=== PATIENT | female | born 1965 | race Hispanic/Latino ===

== ENCOUNTER 2018-09-30 07:19 | Emergency (ER) | payer OTHER ==
[2018-09-30 07:32] VITALS: BMI 31.3
[2018-09-30 07:40] VITALS: RESP 18; TEMP 98.5
--- NOTE | 2018-09-30 07:47 | ED PDOC ---
Arrival/HPI - General Chief Complaint: Abdominal Pain Historian: Patient - History of Present Illness Narrative History of Present Illness (Text): 09/30/18 08:13 Yesy Villavicencio is a 53 year old female, with a past medical history of hyperlipidemia, who presents to the emergency department complaining of epigastric tightness since two days ago. Patient notes pain began as intermittent and is currently constant. Patient informs pain does not radiate. P atient also notes nausea. Patient states pain is worsened consuming food. Patient informs taking Motrin 800mg with no improvement, prompting Emergency department visit. Patient also notes hardened muscle in the right upper quadrant yesterday whose pain improved with self-massage. Patient informs lifting heavy objects. Patient has no history of endoscopy, colonoscopy, or gallstones. Patient does not take any medications. Patient denies radiating pain, urinary or bowel changes, fevers, chills, vomiting, or any other complaints. Time/Duration: < week (2 days ago) Symptom Course: Worsening (was intermittent is now constant) Quality: Tightness Activities at Onset: Light Context: Home Past Medical History - Provider Review Nursing Documentation Reviewed: Yes - Reproductive Menopause: Yes - Cardiac Hx Cardiac Disorders: Yes - Pulmonary Hx Respiratory Disorders: No - Neurological Hx Neurological Disorder: No - HEENT Hx HEENT Disorder: No - Renal Hx Renal Disorder: No - Endocrine/Metabolic Hx Endocrine Disorders: No - Hematological/Oncological Hx Blood Disorders: No - Integumentary Hx Dermatological Disorder: No - Musculoskeletal/Rheumatological Hx Musculoskeletal Disorders: No - Psychiatric Hx Substance Use: No Family/Social History - Physician Review Nursing Documentation Reviewed: Yes Family/Social History: No Known Family HX Smoking Status: Heavy Smoker > 10 Cigarettes Daily Hx Alcohol Use: No Hx Substance Use: No Allergies/Home Meds Allergies/Adverse Reactions: Allergies No Known Allergies Allergy (Verified 09/30/18 07:32) Home Medications: Home Meds Medication Instructions Recorded Confirmed [place]-3 Fatty Acids/Fish Oil [Fish 1 each PO DAILY 09/30/18 09/30/18 Oil 1,000 mg Softgel] Review of Systems - Physician Review All systems were reviewed & negative as marked: Yes - Review of Systems Constitutional: absent: Fevers, Night Sweats Gastrointestinal: Abdominal Pain (epigastric tightness), Nausea. absent: Vomiting, Other (no bowel changes) Genitourinary Female: absent: Frequency, Urine Output Changes Musculoskeletal: Myalgias (right upper quadrant muscle "hardening") Physical Exam Vital Signs Reviewed: Yes Vital Signs Temp Pulse Resp BP Pulse Ox 09/30/18 07:33 98.5 F 92 H 18 143/101 H 98 Temperature: Afebrile Blood Pressure: Hypertensive Pulse: Regular Respiratory Rate: Normal Appearance: Positive for: Well-Appearing, Non-Toxic, Comfortable Pain Distress: None Mental Status: Positive for: Alert and Oriented X 3 - Systems Exam Head: Present: Atraumatic, Normocephalic Pupils: Present: PERRL Extroacular Muscles: Present: EOMI Conjunctiva: Present: Normal Mouth: Present: Moist Mucous Membranes Neck: Present: Normal Range of Motion Respiratory/Chest: Present: Clear to Auscultation, Good Air Exchange. No: Respiratory Distress, Accessory Muscle Use Cardiovascular: Present: Regular Rate and Rhythm, Normal S1, S2. No: Murmurs Abdomen: Present: Tenderness (epigastric tenderness, RUQ tenderness), Other (Positive Pratt's sign). No: Distention, Peritoneal Signs, Rebound, Guarding Back: Present: Normal Inspection Upper Extremity: Present: Normal Inspection. No: Cyanosis, Edema Lower Extremity: Present: Normal Inspection. No: Edema Skin: Present: Warm, Dry, Normal Color. No: Rashes Psychiatric: Present: Alert, Oriented x 3, Normal Insight, Normal Concentration Medical Decision Making ED Course and Treatment: 09/30/18 08:28 Impression: Patient is a 53 year old female who presents to the emergency room complaining of epigastric tenderness since 2 days ago. Patient also informs of hardened muscle in the RUQ since yesterday. Differential Diagnosis included but are not limited to: Plan: -- EKG -- Labs -- IV Fluids -- Urine Culture -- Toradol -- US Abdomen -- Reassess and disposition Prior Visits: Notes and results from previous visits were reviewed. Progress Notes: - EKG Interpretation EKG Interpretation (Text): 09/30/18 07:44 EKG: Ordered, reviewed, and independently interpreted the EKG. Rate : 88 BPM Rhythm : NSR Interpretation : Normal axis and intervals Comparison : No previous EKG for comparison. Interpreted by ED Physician: Yes Type: 12 lead EKG - Scribe Statement The provider has reviewed the documentation as recorded by the Scribe Boone Calderon All medical record entries made by the Moi were at my direction and personally dictated by me. I have reviewed the chart and agree that the record accurately reflects my personal performance of the history, physical exam, medical decision making, and the department course for this patient. I have also personally directed, reviewed, and agree with the discharge instructions and disposition. Disposition/Present on Arrival - Present on Arrival Any Indicators Present on Arrival: No History of DVT/PE: No History of Uncontrolled Diabetes: No Urinary Catheter: No History of Decub. Ulcer: No History Surgical Site Infection Following: None - Disposition Have Diagnosis and Disposition been Completed?: Yes Diagnosis: Gallstone Disposition: HOME/ ROUTINE Disposition Time: 12:15 Condition: GOOD Discharge Instructions (ExitCare): Gallstones (DC) Additional Instructions: YESY VILLAVICENCIO, thank you for letting us take care of you today. Your provider was Boone Middleton DO and you were treated for abdominal pain. The emergency medical care you received today was directed at your acute symptoms. If you were prescribed any medication, please fill it and take as directed. It may take several days for your symptoms to resolve. Return to the Emergency Department if your symptoms worsen, do not improve, or if you have any other problems. Please contact your doctor or call one of the physicians/clinics you have been referred to that are listed on the Patient Visit Information form that is included in your discharge packet. Bring any paperwork you were given at discharge with you along with any medications you are taking to your follow up visit. Our treatment cannot replace ongoing medical care by a primary care provider outside of the emergency department. Thank you for allowing the [facility] team to be part of your care today. Follow up with your primary care doctor in 3-5 days for re-evaluation and further management. Prescriptions: Ibuprofen [Motrin] 600 mg PO Q6 PRN #20 tab PRN Reason: Pain, Moderate (4-7) Referrals: [facility] Zoya Spaulding, [Non-Staff] - Follow up with primary Forms: [employer] ([place])
[2018-09-30] MEDS ORDERED: Sodium Chloride 0.9% 1,000 ML IV STA (07:54)
[2018-09-30] MEDS ORDERED: Sodium Chloride 0.9% 1,000 ML IV SCH (08:15)
[2018-09-30 09:09] LABS: URINE BILIRUBIN NEGATIVE (NEGATIVE); URINE BLOOD NEGATIVE (NEGATIVE); URINE GLUCOSE (UA) NEGATIVE (NEGATIVE); URINE LEUKOCYTE ESTERASE NEGATIVE Leu/uL (NEGATIVE); URINE PROTEIN NEGATIVE mg/dL (<30 mg/dL); URINE UROBILINOGEN 0.2 E.U./dL (<1 E.U./dL)
[2018-09-30 09:12] LABS: BASO # 0.06 K/mm3 (0.0-2.0); BASO % 0.6 % (0.0-3.0); EOS # 0.3 (0.0-0.7); EOS % 2.5 % (1.5-5.0); HEMOGLOBIN 13.5 g/dL (12.0-16.0); LYMPH # 2.4 (1.2-3.4); LYMPH % 22.3 % (22.0-35.0); MEAN CELL VOLUME 86.2 fl (80.0-105.0); MEAN CORPUSCULAR HEMOGLOBIN 28.6 pg (25.0-35.0); MEAN CORPUSCULAR HGB CONC 33.2 g/dl (31.0-37.0); MEAN PLATELET VOLUME 9.7 fl (7.0-11.0); MONO # 0.9 (0.1-0.6); MONO % 8.7 % (1.0-6.0); RBC 4.72 10^6/uL (3.5-6.1); RED CELL DISTRIBUTION WIDTH 12.8 % (11.5-14.5); WHITE BLOOD COUNT 10.8 10^3/uL (4.5-11.0)
[2018-09-30 09:22] LABS: ALB/GLOB RATIO 1.3 (1.1-1.8); ALBUMIN 4.1 g/dL (3.0-4.8); ALT/SGPT 15 U/L (7-56); AST/SGOT 18 U/L (14-36); BLOOD UREA NITROGEN 13 mg/dL (7-21); CALCIUM 9.5 mg/dL (8.4-10.5); GFR NON-AFRICAN AMERICAN > 60; LIPASE 43 U/L (23-300)
[2018-09-30 09:27] LABS: URINE APPEARANCE CLEAR (CLEAR); URINE COLOR YELLOW (YELLOW)
--- NOTE | 2018-09-30 09:27 | CARD ---
APPROVED REPORT Date of service: 09/30/2018 EKG Measurement Heart [id number] <Conclusion> Normal sinus rhythm Possible Left atrial enlargement Possible Inferior infarct, age undetermined Abnormal ECG
[2018-09-30 09:29] LABS: TROPONIN I < 0.01 ng/mL
--- NOTE | 2018-09-30 12:12 | US ---
Date of service: 09/30/2018 HISTORY: RUQ tenderness COMPARISON: None. TECHNIQUE: Sonographic evaluation of the abdomen. FINDINGS: LIVER: Measures 13.8 cm. Patent portal vein. Portal venous flow: Hepatopetal. Unremarkable echogenicity of the liver parenchyma. No mass. No intrahepatic bile duct dilatation. GALLBLADDER: Cholelithiasis. Negative study for gallbladder wall thickening, pericholecystic fluid, sonographic Pratt's sign. COMMON BILE DUCT: Measures 6.5 mm. No stones. No dilatation. PANCREAS: Unremarkable as visualized. No mass. No ductal dilatation. RIGHT KIDNEY: Measures 4.7 x 10.9cm. Normal echogenicity. No calculus, mass, or hydronephrosis. LEFT KIDNEY: Measures 5.4 x 10.2cm. Normal echogenicity. No calculus, mass, or hydronephrosis. SPLEEN: Normal in size and contour. No mass. AORTA: No aneurysmal dilatation. IVC: Unremarkable. OTHER FINDINGS: None. IMPRESSION: Solitary gallstone in the neck of the gallbladder less than 6 mm. No sonographic evidence of acute cholecystitis.
[2018-09-30 12:22] VITALS: BP 106/69; PULSE 77
[2018-09-30 13:13] VITALS: O2SAT 99
== END 2018-09-30 13:12 | disposition home or self-care (01) ==
LOC: ED 07:19
DX: K80.20 Calculus of gallbladder without cholecystitis without obstruction (principal); F17.210 Nicotine dependence, cigarettes, uncomplicated; E78.5 Hyperlipidemia, unspecified
CPT/HCPCS: 76700; 80053; 81003; 82550; 83615; 83690; 83735; 84484; 85025; 87086; 93005; 96361; 96374; 99283; J1885; J7030

== ENCOUNTER 2018-10-08 18:14 | Inpatient (IN) | payer OTHER ==
[2018-10-08 18:40] VITALS: BMI 30.2
[2018-10-08 19:43] LABS: BASO # 0.04 K/mm3 (0.0-2.0); BASO % 0.4 % (0.0-3.0); EOS # 0.2 (0.0-0.7); EOS % 1.8 % (1.5-5.0); HEMOGLOBIN 13.8 g/dL (12.0-16.0); LYMPH # 1.4 (1.2-3.4); LYMPH % 13.4 % (22.0-35.0); MEAN CELL VOLUME 83.8 fl (80.0-105.0); MEAN CORPUSCULAR HEMOGLOBIN 29.1 pg (25.0-35.0); MEAN CORPUSCULAR HGB CONC 34.8 g/dl (31.0-37.0); MONO # 0.9 (0.1-0.6); MONO % 8.7 % (1.0-6.0); RBC 4.74 10^6/uL (3.5-6.1); WHITE BLOOD COUNT 10.2 10^3/uL (4.5-11.0)
[2018-10-08 19:52] LABS: INR 1.14; PROTHROMBIN TIME 12.7 SECONDS (9.4-12.5)
[2018-10-08 19:57] LABS: ALB/GLOB RATIO 1.1 (1.1-1.8); ALBUMIN 4.1 g/dL (3.0-4.8); ALT/SGPT 623 U/L (7-56); AST/SGOT 803 U/L (14-36); BLOOD UREA NITROGEN 13 mg/dL (7-21); GFR NON-AFRICAN AMERICAN > 60; LIPASE 56 U/L (23-300)
--- NOTE | 2018-10-08 20:31 | ED PDOC ---
Arrival/HPI - General Chief Complaint: Abdominal Pain Time Seen by Provider: 10/08/18 19:04 Historian: Patient - History of Present Illness Narrative History of Present Illness (Text): 10/08/18 20:25 53 year old female, whose past medical history includes Hypercholesterolemia and gallstones, presents to the emergency department with epigastric and RUQ pain, for 2 days. Patient was seen here last week for similar symptoms and diagnosed with a gallstone. Patient was advised to follow up with general surgery and was discharged home. Patient informs having a cholecystectomy scheduled for 10/16/[address] Dominguez. Patient states her pain came back and became unbearable yesterday. Patient informs taking 600mg motrin multiple times daily without relief. Patient denies any fever, chills, nausea, vomiting, diarrhea, back p ain, chest pain, shortness of breath, dizziness, or any other complaints. Time/Duration: 1 week, < week (2 days symptoms worsened) Symptom Onset: Gradual Symptom Course: Unchanged Activities at Onset: Light Context: Home Past Medical History - Provider Review Nursing Documentation Reviewed: Yes - Infectious Disease Hx of Infectious Diseases: None - Cardiac Hx Cardiac Disorders: Yes - Pulmonary Hx Respiratory Disorders: No - Neurological Hx Neurological Disorder: No - HEENT Hx HEENT Disorder: No - Renal Hx Renal Disorder: No - Endocrine/Metabolic Hx Endocrine Disorders: No - Hematological/Oncological Hx Blood Disorders: No - Integumentary Hx Dermatological Disorder: No - Musculoskeletal/Rheumatological Hx Musculoskeletal Disorders: No - Gastrointestinal Hx Gall Bladder Disease: Yes (gallstones) - Psychiatric Hx Substance Use: No - Anesthesia Hx Anesthesia: Yes Hx Anesthesia Reactions: No Hx Malignant Hyperthermia: No Family/Social History - Physician Review Nursing Documentation Reviewed: Yes Family/Social History: No Known Family HX Smoking Status: Heavy Smoker > 10 Cigarettes Daily Hx Alcohol Use: No Hx Substance Use: No Allergies/Home Meds Allergies/Adverse Reactions: Allergies No Known Allergies Allergy (Verified 09/30/18 07:32) Home Medications: Home Meds Medication Instructions Recorded Confirmed [place]-3 Fatty Acids/Fish Oil [Fish 1 each PO DAILY 09/30/18 09/30/18 Oil 1,000 mg Softgel] Review of Systems - Physician Review All systems were reviewed & negative as marked: Yes - Review of Systems Constitutional: Normal. absent: Fatigue, Fevers, Night Sweats Eyes: Normal. absent: Vision Changes, Photophobia ENT: Normal. absent: Sore Throat, Sinus Congestion Respiratory: Normal. absent: SOB, Cough Cardiovascular: Normal. absent: Chest Pain, Palpitations Gastrointestinal: Abdominal Pain. absent: Stool Changes, Diarrhea, Nausea, V omiting, Appetite Changes Genitourinary Female: Normal. absent: Dysuria, Frequency Musculoskeletal: Normal. absent: Back Pain, Neck Pain Skin: Normal. absent: Rash Neurological: Normal. absent: Headache, Dizziness Physical Exam Vital Signs Reviewed: Yes Vital Signs Temp Pulse Resp BP Pulse Ox 10/08/18 18:40 98.5 F 105 H 18 162/88 H 95 Temperature: Afebrile Blood Pressure: Hypertensive Pulse: Tachycardic Respiratory Rate: Normal Appearance: Positive for: Well-Appearing, Non-Toxic, Comfortable Pain Distress: None Mental Status: Positive for: Alert and Oriented X 3 - Systems Exam Head: Present: Atraumatic, Normocephalic Pupils: Present: PERRL Extroacular Muscles: Present: EOMI Conjunctiva: Present: Normal Mouth: Present: Moist Mucous Membranes Neck: Present: Normal Range of Motion Respiratory/Chest: Present: Clear to Auscultation, Good Air Exchange. No: Respiratory Distress, Accessory Muscle Use Cardiovascular: Present: Regular Rate and Rhythm, Normal S1, S2. No: Murmurs Abdomen: Present: Tenderness (RUQ ), Normal Bowel Sounds, McBurney's Point Tender, Other ((+) Rough And Ready sign). No: Distention, Peritoneal Signs Back: Present: Normal Inspection. No: CVA Tenderness, Paraspinal Tenderness Upper Extremity: Present: Normal Inspection, Normal ROM, NORMAL PULSES, Neurovascularly Intact, Capillary Refill < 2s. No: Cyanosis, Edema, Temperature Abnormalties Lower Extremity: Present: Normal Inspection, Normal ROM, Neurovascularly Intact. No: Edema Neurological: Present: GCS=15, CN II-XII Intact, Speech Normal, Motor Func Grossly Intact, Normal Sensory Function, Gait Normal Skin: Present: Warm, Dry, Normal Color. No: Rashes Psychiatric: Present: Alert, Oriented x 3, Normal Insight, Normal Concentration, Normal Affect, Normal Mood Medical Decision Making ED Course and Treatment: 10/08/18 20:32 Impression: 53 year old female with RUQ pain. Plan: -- CBC, CMP -- Direct bilirubin -- Coags -- Surgery Consult -- Reassess and disposition Prior Visits: Notes and results from previous visits were reviewed. Progress Notes: Bloodwork reviewed, LFTs markedly elevated, tbili 3.3 20:00 Spoke with surgical aide, who will come to ED to evaluate patient. 20:20 md do resident urgent care recommends admission, however patient cannot be admitted to surgical service, as Dr. Dominguez and Dr. Jackson do not have admitting privileges 21:[address] Dk Cullen, covering for Oskar Cullen who accepted patient for inpatient med/surg admission with diagnosis of cholelithiasis and elevated LFTs. Requests Dr. Walls as GI consult. Pt updated with change in disposition. Resting comfortably in stretcher with stable vitals at this time. Dr Walls originally called for GI consult, however he does not perform ERCP. Surgical team consulted Dr. Breen. - Lab Interpretations Lab Results: PT 12.7 SECONDS (9.4-12.5) H 10/08/18 19:31 INR 1.14 10/08/18 19:31 APTT 31.0 Seconds (26.9-38.3) 10/08/18 19:31 Total Bilirubin 3.3 mg/dL (0.2-1.3) H 10/08/18 19:31 Direct Bilirubin 2.0 mg/dL (0.0-0.4) H 10/08/18 19:31 AST 803 U/L (14-36) H D 10/08/18 19:31 ALT 623 U/L (7-56) H 10/08/18 19:31 Alkaline Phosphatase 227 U/L (38-126) H D 10/08/18 19:31 Total Protein 7.9 g/dL (5.8-8.3) 10/08/18 19:31 Albumin 4.1 g/dL (3.0-4.8) 10/08/18 19:31 Globulin 3.8 gm/dL 10/08/18 19:31 Albumin/Globulin Ratio 1.1 (1.1-1.8) 10/08/18 19:31 Lipase 56 U/L (23-300) 10/08/18 19:31 10/08/18 19:31 10/08/18 19:31 Lab Results 10/08/18 19:31: PT 12.7 H, INR 1.14, APTT 31.0 10/08/18 19:31: Sodium 138, Potassium 4.0, Chloride 100, Carbon Dioxide 29, Anion Gap 13, BUN 13, Creatinine 0.7, Est GFR ( Amer) > 60, Est GFR (Non- Af Amer) > 60, Random Glucose 122 H, Calcium 10.0, Total Bilirubin 3.3 H, Direct Bilirubin 2.0 H, AST 803 H D, ALT 623 H, Alkaline Phosphatase 227 H D, Total Protein 7.9, Albumin 4.1, Globulin 3.8, Albumin/Globulin Ratio 1.1, Lipase 56 10/08/18 19:31: WBC 10.2, RBC 4.74, Hgb 13.8, Hct 39.7, MCV 83.8, MCH 29.1, MCHC 34.8, RDW 12.0, Plt Count 383, MPV 9.0, Neut % (Auto) 75.7 H, Lymph % (Auto) 13.4 L, [place] % (Auto) 8.7 H, Eos % (Auto) 1.8, Baso % (Auto) 0.4, Lymph # (Auto) 1.4, [place] # (Auto) 0.9 H, Eos # (Auto) 0.2, Baso # (Auto) 0.04, Absolute Neuts (auto) 7.71 H I have reviewed the lab results: Yes - Medication Orders Current Medication Orders: Discontinued Medications Ketorolac Tromethamine (Toradol) 30 mg IVP STAT STA Stop: 10/08/18 19:22 Last Admin: 10/08/18 19:42 Dose: 30 mg MAR Pain Assessment Document 10/08/18 19:42 IT (Rec: 10/08/18 19:42 IT [id number]) Pain Reassessment Is this a pain reassessment? No Sleep Is patient sleeping during reassessment? No Presence of Pain Presence of Pain Yes Pain Scale Used Protocol: PSCALES Pain Scale Used Numeric IVP Administration Document 10/08/18 19:42 IT (Rec: 10/08/18 19:42 IT [id number]) Charges for Administration # of IVP Administrations 1 - Scribe Statement The provider has reviewed the documentation as recorded by the Moi Loza Provider Scribe Attestation: All medical record entries made by the Scribe were at my direction and personally dictated by me. I have reviewed the chart and agree that the record accurately reflects my personal performance of the history, physical exam, medical decision making, and the department course for this patient. I have also personally directed, reviewed, and agree with the discharge instructions and disposition. Disposition/Present on Arrival - Present on Arrival Any Indicators Present on Arrival: No History of DVT/PE: No History of Uncontrolled Diabetes: No Urinary Catheter: No History of Decub. Ulcer: No History Surgical Site Infection Following: None - Disposition Have Diagnosis and Disposition been Completed?: Yes Diagnosis: Cholelithiasis, Elevated LFTs Disposition: HOSPITALIZED Disposition Time: 20:20 Patient Problems: Current Active Problems Problem Status Onset Cholelithiasis Acute Elevated LFTs Acute Condition: STABLE
--- NOTE | 2018-10-08 20:55 | CP.PCM.HP ---
Past Patient History - Infectious Disease Hx of Infectious Diseases: None - Past Social History Smoking Status: Heavy Smoker > 10 Cigarettes Daily - CARDIAC Hx Cardiac Disorders: Yes - PULMONARY Hx Respiratory Disorders: No - NEUROLOGICAL Hx Neurological Disorder: No - HEENT Hx HEENT Problems: No - RENAL Hx Chronic Kidney Disease: No - ENDOCRINE/METABOLIC Hx Endocrine Disorders: No - HEMATOLOGICAL/ONCOLOGICAL Hx Blood Disorders: No - INTEGUMENTARY Hx Dermatological Problems: No - MUSCULOSKELETAL/RHEUMATOLOGICAL Hx Musculoskeletal Disorders: No - GASTROINTESTINAL Hx Gall Bladder Disease: Yes (gallstones) - PSYCHIATRIC Hx Substance Use: No - SURGICAL HISTORY Hx Herniorrhaphy: Yes - ANESTHESIA Hx Anesthesia: Yes Hx Anesthesia Reactions: No Hx Malignant Hyperthermia: No Meds Allergies/Adverse Reactions: Allergies Allergy/AdvReac Type Severity Reaction Status Date / Time No Known Allergies Allergy Verified 09/30/18 07:32 Results - Vital Signs Recent Vital Signs: Last Vital Signs Temp 98.5 F 10/08/18 18:40 Pulse 105 H 10/08/18 18:40 Resp 18 10/08/18 18:40 BP 162/88 H 10/08/18 18:40 Pulse Ox 95 10/08/18 18:40 - Labs Result Diagrams: 10/08/18 19:31 10/08/18 19:31 Labs: Laboratory Results - last 24 hr 10/08/18 10/08/18 10/08/18 19:31 19:31 19:31 WBC 10.2 RBC 4.74 Hgb 13.8 Hct 39.7 MCV 83.8 MCH 29.1 MCHC 34.8 RDW 12.0 Plt Count 383 MPV 9.0 Neut % (Auto) 75.7 H Lymph % (Auto) 13.4 L [place] % (Auto) 8.7 H Eos % (Auto) 1.8 Baso % (Auto) 0.4 Lymph # (Auto) 1.4 [place] # (Auto) 0.9 H Eos # (Auto) 0.2 Baso # (Auto) 0.04 Absolute Neuts (auto) 7.71 H PT 12.7 H INR 1.14 APTT 31.0 Sodium 138 Potassium 4.0 Chloride 100 Carbon Dioxide 29 Anion Gap 13 BUN 13 Creatinine 0.7 Est GFR ( Amer) > 60 Est GFR (Non-Af Amer) > 60 Random Glucose 122 H Calcium 10.0 Total Bilirubin 3.3 H Direct Bilirubin 2.0 H AST 803 H D ALT 623 H Alkaline Phosphatase 227 H D Total Protein 7.9 Albumin 4.1 Globulin 3.8 Albumin/Globulin Ratio 1.1 Lipase 56
[2018-10-08] MEDS: Dextrose 5%/0.45% NS 1,000 ML IV SCH (20:59)
--- NOTE | 2018-10-08 21:50 | CP.PCM.CON ---
History of Present Illness - History of Present Illness History of Present Illness: General Surgery Consult: Dr Dominguez (Dr Jackson covering) PT is a 53F with no significant PMH. Pt presented last week on 09/30 with RUQ pain. US demonstrated cholelithiasis as likely cause of symptoms. Pt pain resolved and she was d/c with outpatient f/u with surgery. Pt was seen in clinic and scheduled for elective cholecystectomy next week. However, pt had worsening symptoms prompting a return to the ED. Repeat labs showed a significant increase in LFTs including Tbili of 3.3. Pt reports pain is now persistent in RUQ and will not go away. She denies any associated fevers, chills, nausea or vomiting. She has had anorexia since onset of symptoms PMH; none PSH: left inguinal hernia repair (30 years ago) social: tobacco, denies EtOH or other drugs Review of Systems - Review of Systems All systems: reviewed and no additional remarkable complaints except (as per hpi) Past Patient History - Infectious Disease Hx of Infectious Diseases: None - Past Social History Smoking Status: Heavy Smoker > 10 Cigarettes Daily - CARDIAC Hx Cardiac Disorders: Yes - PULMONARY Hx Respiratory Disorders: No - NEUROLOGICAL Hx Neurological Disorder: No - HEENT Hx HEENT Problems: No - RENAL Hx Chronic Kidney Disease: No - ENDOCRINE/METABOLIC Hx Endocrine Disorders: No - HEMATOLOGICAL/ONCOLOGICAL Hx Blood Disorders: No - INTEGUMENTARY Hx Dermatological Problems: No - MUSCULOSKELETAL/RHEUMATOLOGICAL Hx Musculoskeletal Disorders: No - GASTROINTESTINAL Hx Gall Bladder Disease: Yes (gallstones) - PSYCHIATRIC Hx Substance Use: No - SURGICAL HISTORY Hx Herniorrhaphy: Yes - ANESTHESIA Hx Anesthesia: Yes Hx Anesthesia Reactions: No Hx Malignant Hyperthermia: No Meds Allergies/Adverse Reactions: Allergies Allergy/AdvReac Type Severity Reaction Status Date / Time No Known Allergies Allergy Verified 09/30/18 07:32 - Medications Medications: Current Medications Dextrose/Sodium Chloride (Dextrose 5%/0.45% Ns 1000 Ml) 1,000 mls @ 75 mls/hr IV .[id number] [facility] Last Admin: 10/08/18 20:59 Dose: 75 mls/hr Ketorolac Tromethamine (Toradol) 15 mg IVP Q6H PRN PRN Reason: Pain, Mild (1-3) Physical Exam - Constitutional Appears: Non-toxic, No Acute Distress - Head Exam Head Exam: NORMOCEPHALIC - Eye Exam Eye Exam: Normal appearance. absent: Scleral icterus - Respiratory Exam Respiratory Exam: absent: Respiratory Distress - Cardiovascular Exam Cardiovascular Exam: REGULAR RHYTHM. absent: Tachycardia - GI/Abdominal Exam GI & Abdominal Exam: Soft, Tenderness (RUQ). absent: Distended, Firm, Guarding, Hernia - Extremities Exam Extremities exam: Negative for: pedal edema - Neurological Exam Neurological exam: Alert, Oriented x3 Results - Vital Signs Recent Vital Signs: Last Vital Signs Temp 98.5 F 10/08/18 18:40 Pulse 105 H 10/08/18 18:40 Resp 18 10/08/18 18:40 BP 162/88 H 10/08/18 18:40 Pulse Ox 95 10/08/18 18:40 - Labs Result Diagrams: 10/08/18 19:31 10/08/18 19:31 Labs: Laboratory Results - last 24 hr 10/08/18 10/08/18 10/08/18 19:31 19:31 19:31 WBC 10.2 RBC 4.74 Hgb 13.8 Hct 39.7 MCV 83.8 MCH 29.1 MCHC 34.8 RDW 12.0 Plt Count 383 MPV 9.0 Neut % (Auto) 75.7 H Lymph % (Auto) 13.4 L [place] % (Auto) 8.7 H Eos % (Auto) 1.8 Baso % (Auto) 0.4 Lymph # (Auto) 1.4 [place] # (Auto) 0.9 H Eos # (Auto) 0.2 Baso # (Auto) 0.04 Absolute Neuts (auto) 7.71 H PT 12.7 H INR 1.14 APTT 31.0 Sodium 138 Potassium 4.0 Chloride 100 Carbon Dioxide 29 Anion Gap 13 BUN 13 Creatinine 0.7 Est GFR ( Amer) > 60 Est GFR (Non-Af Amer) > 60 Random Glucose 122 H Calcium 10.0 Total Bilirubin 3.3 H Direct Bilirubin 2.0 H AST 803 H D ALT 623 H Alkaline Phosphatase 227 H D Total Protein 7.9 Albumin 4.1 Globulin 3.8 Albumin/Globulin Ratio 1.1 Lipase 56 Assessment & Plan - Assessment and Plan (Free Text) Assessment: 53F with probable choledocholithiasis Plan: admit pt NPO IVF Trend LFTs Dr Walls originally called for GI consult, however he does not perform ERCP which is likely what this pt will need. Call previously placed to Dr Breen's service, will follow up with him in AM regarding potential ERCP. Pt will potentially need cholecystectomy prior to discharge, pending results of ERCP d/w Dr Jackson who is covering for Dr Dominguez. Alexey Lebron, PGY4
[2018-10-09 06:59] LABS: HEMOGLOBIN 12.9 g/dL (12.0-16.0); MEAN CELL VOLUME 83.8 fl (80.0-105.0); MEAN CORPUSCULAR HEMOGLOBIN 28.5 pg (25.0-35.0); MEAN PLATELET VOLUME 9.2 fl (7.0-11.0); RBC 4.52 10^6/uL (3.5-6.1); RED CELL DISTRIBUTION WIDTH 12.2 % (11.5-14.5)
[2018-10-09 07:12] LABS: ALBUMIN 3.6 g/dL (3.0-4.8); ALT/SGPT 844 U/L (7-56); AST/SGOT 918 U/L (14-36); BLOOD UREA NITROGEN 11 mg/dL (7-21); CALCIUM 9.4 mg/dL (8.4-10.5); GFR NON-AFRICAN AMERICAN > 60
--- NOTE | 2018-10-09 07:29 | CP.PCM.CON ---
<Joseph Suarez - Last Filed: 10/09/18 11:08> History of Present Illness - History of Present Illness History of Present Illness: Joseph Erick PGY2 GI Consult Note for Dr. Breen Reason for consult: Elevated LFTs, possible choledocholithiasis Ms. Villavicencio is a 53 year old female with a PMH of tobacco use who is admitted for abdominal pain likely due to choledocolithiasis. The patient states that her pain began about 10 days ago and she was seen here in the ED on 09/30 and US was done that showed <6mm gallstone in the neck of the gallbladder. The patient was discharged and followed-up with her PMD and Dr. Dominguez (surgery) and was planned for an elective cholecystectomy, however, the night of admission, the patient's pain increased greatly and she started feeling nauseous which brought her in. The patient remains afebrile with no luekocytosis, however, her AST/ALT, ALP and bilirubin are elevated indicated likely a CBD stone. GI is consulted for elevated LFTs, possible choledocholithiasis. Surgery is also following the patient. Patient currently complains of nausea but no vomiting, diarrhea. Her abdominal pain is mainly RUQ and radiating to her back. 12-pt ROS was reviewed and is otherwise unremarkable. PMD: Dr. Cullen PMH: none PSH: hernia repair MEds: none Allergies: NKDA SHx: smokes 7cigs/day, denies ETOH or drug use FHx: unremarkable Review of Systems - Review of Systems All systems: reviewed and no additional remarkable complaints except (as per HPI) Past Patient History - Infectious Disease Hx of Infectious Diseases: None - Past Social History Smoking Status: Light Smoker < 10 Cigarettes Daily - CARDIAC Hx Hypercholesterolemia: Yes - PULMONARY Hx Respiratory Disorders: No - NEUROLOGICAL Hx Neurological Disorder: No - HEENT Hx HEENT Problems: No - RENAL Hx Chronic Kidney Disease: No - ENDOCRINE/METABOLIC Hx Endocrine Disorders: No - HEMATOLOGICAL/ONCOLOGICAL Hx Blood Disorders: No - INTEGUMENTARY Hx Dermatological Problems: No - MUSCULOSKELETAL/RHEUMATOLOGICAL Hx Falls: No - GASTROINTESTINAL Hx Gall Bladder Disease: Yes (gallstones) - PSYCHIATRIC Hx Substance Use: No - SURGICAL HISTORY Other/Comment: LEFT INGUINAL HERNIA REPAIR - ANESTHESIA Hx Anesthesia: Yes Hx Anesthesia Reactions: No Hx Malignant Hyperthermia: No Meds Allergies/Adverse Reactions: Allergies Allergy/AdvReac Type Severity Reaction Status Date / Time No Known Allergies Allergy Verified 09/30/18 07:32 - Medications Medications: Current Medications Dextrose/Sodium Chloride (Dextrose 5%/0.45% Ns 1000 Ml) 1,000 mls @ 75 mls/hr IV .[id number] ARCENIO Last Admin: 10/08/18 20:59 Dose: 75 mls/hr Ketorolac Tromethamine (Toradol) 15 mg IVP Q6H PRN PRN Reason: Pain, Mild (1-3) Last Admin: 10/08/18 22:14 Dose: 15 mg Ondansetron HCl (Zofran Inj) 4 mg IVP Q4H PRN PRN Reason: Nausea/Vomiting Physical Exam - Constitutional Appears: Well, Non-toxic, No Acute Distress - Head Exam Head Exam: ATRAUMATIC, NORMAL INSPECTION, NORMOCEPHALIC - Eye Exam Eye Exam: EOMI, Normal appearance, PERRL. absent: Scleral icterus Pupil Exam: NORMAL ACCOMODATION, PERRL - ENT Exam ENT Exam: Mucous Membranes Moist, Normal Exam - Neck Exam Neck exam: Positive for: Full Rom, Normal Inspection - Respiratory Exam Respiratory Exam: Clear to Auscultation Bilateral, NORMAL BREATHING PATTERN - Cardiovascular Exam Cardiovascular Exam: REGULAR RHYTHM, +S1, +S2 - GI/Abdominal Exam GI & Abdominal Exam: Normal Bowel Sounds, Soft, Tenderness (RUQ, +abarca sign). absent: Distended - Extremities Exam Extremities exam: Positive for: normal inspection - Back Exam Back exam: NORMAL INSPECTION - Neurological Exam Neurological exam: Alert, Normal Gait - Skin Skin Exam: Dry, Intact, Normal Color, Warm Additional comments: no jaundice noted Results - Vital Signs Recent Vital Signs: Last Vital Signs Temp 98.4 F 10/08/18 23:19 Pulse 72 10/08/18 23:19 Resp 18 10/08/18 23:19 BP 150/84 10/08/18 23:19 Pulse Ox 96 10/08/18 23:19 - Labs Result Diagrams: 10/09/18 06:30 10/09/18 06:30 Labs: Laboratory Results - last 24 hr 10/08/18 10/08/18 10/08/18 19:31 19:31 19:31 WBC 10.2 RBC 4.74 Hgb 13.8 Hct 39.7 MCV 83.8 MCH 29.1 MCHC 34.8 RDW 12.0 Plt Count 383 MPV 9.0 Neut % (Auto) 75.7 H Lymph % (Auto) 13.4 L [place] % (Auto) 8.7 H Eos % (Auto) 1.8 Baso % (Auto) 0.4 Lymph # (Auto) 1.4 [place] # (Auto) 0.9 H Eos # (Auto) 0.2 Baso # (Auto) 0.04 Absolute Neuts (auto) 7.71 H PT 12.7 H INR 1.14 APTT 31.0 Sodium 138 Potassium 4.0 Chloride 100 Carbon Dioxide 29 Anion Gap 13 BUN 13 Creatinine 0.7 Est GFR ( Amer) > 60 Est GFR (Non-Af Amer) > 60 Random Glucose 122 H Calcium 10.0 Total Bilirubin 3.3 H Direct Bilirubin 2.0 H AST 803 H D ALT 623 H Alkaline Phosphatase 227 H D Total Protein 7.9 Albumin 4.1 Globulin 3.8 Albumin/Globulin Ratio 1.1 Lipase 56 10/09/18 10/09/18 06:30 06:30 WBC 10.0 RBC 4.52 Hgb 12.9 Hct 37.9 MCV 83.8 MCH 28.5 MCHC 34.0 RDW 12.2 Plt Count 367 MPV 9.2 Neut % (Auto) Lymph % (Auto) [place] % (Auto) Eos % (Auto) Baso % (Auto) Lymph # (Auto) [place] # (Auto) Eos # (Auto) Baso # (Auto) Absolute Neuts (auto) PT INR APTT Sodium 141 Potassium 3.7 Chloride 100 Carbon Dioxide 29 Anion Gap 16 BUN 11 Creatinine 0.6 L Est GFR ( Amer) > 60 Est GFR (Non-Af Amer) > 60 Random Glucose 132 H Calcium 9.4 Total Bilirubin 4.2 H Direct Bilirubin AST 918 H ALT 844 H Alkaline Phosphatase 235 H Total Protein 7.3 Albumin 3.6 Globulin 3.7 Albumin/Globulin Ratio 1.0 L Lipase Assessment & Plan - Assessment and Plan (Free Text) Assessment: 53 year old female with no significant medical history admitted for choledocolithiasis. ABD US reviewed from prior ED visit. Patient with no significant signs of sepsis at this time. Plan: - will monitor H/H and AST/ALT - MRCP ordered to evaluate stone - ERCP needed, likely can be done tomorrow - will need colonoscopy, surgery team is following - can monitor off abx at this time - cont IVF - zofran prn - pain mgmt - monitor VS q4 - further recs per Dr. Breen This note is not finalized until signed Case was reviewed and discussed with Dr. Breen <Radha Breen V - Last Filed: 10/09/18 21:50> Meds - Medications Medications: Current Medications Acetaminophen (Tylenol 325mg Tab) 650 mg PO Q6H PRN PRN Reason: Other Last Admin: 10/09/18 12:31 Dose: 650 mg Dextrose/Sodium Chloride (Dextrose 5%/0.45% Ns 1000 Ml) 1,000 mls @ 75 mls/hr IV .[id number] ARCENIO Last Admin: 10/09/18 09:50 Dose: 75 mls/hr Piperacillin Sod/Tazobactam Sod (Zosyn 3.375 In Ns 100ml) 100 mls @ 200 mls/hr IVPB Q8H ARCENIO; Protocol Stop: 10/16/18 13:46 Last Admin: 10/09/18 17:55 Dose: 200 mls/hr Ketorolac Tromethamine (Toradol) 15 mg IVP Q6H PRN PRN Reason: Pain, Mild (1-3) Last Admin: 10/09/18 15:09 Dose: 15 mg Ondansetron HCl (Zofran Inj) 4 mg IVP Q4H PRN PRN Reason: Nausea/Vomiting Last Admin: 10/09/18 07:51 Dose: 4 mg Results - Vital Signs Recent Vital Signs: Last Vital Signs Temp 99.1 F 10/09/18 14:00 Pulse 84 10/09/18 14:00 Resp 18 10/09/18 14:00 BP 115/71 10/09/18 14:00 Pulse Ox 94 L 10/09/18 14:00 - Labs Result Diagrams: 10/09/18 19:27 10/09/18 19:27 Labs: Laboratory Results - last 24 hr 10/09/18 10/09/18 10/09/18 06:30 06:30 14:10 WBC 10.0 RBC 4.52 Hgb 12.9 Hct 37.9 MCV 83.8 MCH 28.5 MCHC 34.0 RDW 12.2 Plt Count 367 MPV 9.2 Sodium 141 Potassium 3.7 Chloride 100 Carbon Dioxide 29 Anion Gap 16 BUN 11 Creatinine 0.6 L Est GFR ( Amer) > 60 Est GFR (Non-Af Amer) > 60 Random Glucose 132 H Calcium 9.4 Total Bilirubin 4.2 H AST 918 H ALT 844 H Alkaline Phosphatase 235 H Total Protein 7.3 Albumin 3.6 Globulin 3.7 Albumin/Globulin Ratio 1.0 L Urine Color Dark yellow Urine Appearance Slight-cloudy Urine pH 6.0 Ur Specific [place] >= 1.030 Urine Protein Trace H Urine Glucose (UA) Negative Urine Ketones Trace H Urine Blood Negative Urine Nitrate Positive H Urine Bilirubin Large H Urine Urobilinogen 1.0 H Ur Leukocyte Esterase Negative Urine RBC 0 - 2 Urine WBC 1 - 3 Ur Epithelial Cells None Urine Bacteria Small 10/09/18 10/09/18 19:27 19:27 WBC 9.8 RBC 4.06 Hgb 11.7 L Hct 34.5 L MCV 85.0 MCH 28.8 MCHC 33.9 RDW 12.3 Plt Count 280 MPV 9.0 Sodium 137 Potassium 3.3 L Chloride 101 Carbon Dioxide 28 Anion Gap 11 BUN 12 Creatinine 0.7 Est GFR ( Amer) > 60 Est GFR (Non-Af Amer) > 60 Random Glucose 121 H Calcium 8.7 Total Bilirubin 5.2 H AST 685 H D ALT 796 H Alkaline Phosphatase 253 H Total Protein 6.7 Albumin 3.2 Globulin 3.4 Albumin/Globulin Ratio 0.9 L Urine Color Urine Appearance Urine pH Ur Specific [place] Urine Protein Urine Glucose (UA) Urine Ketones Urine Blood Urine Nitrate Urine Bilirubin Urine Urobilinogen Ur Leukocyte Esterase Urine RBC Urine WBC Ur Epithelial Cells Urine Bacteria Attending/Attestation - Attestation I have personally seen and examined this patient.: Yes I have fully participated in the care of the patient.: Yes I have reviewed all pertinent clinical information: Yes Notes (Text): This is an addendum to the GI consultation report dictated by the medical concierge. Patient was seen and evaluated here earlier. Discussed with the nursing staff. Imaging studies were reviewed. HIDA scan was reviewed and discussed with the anesthesia resident. Patient was admitted initially with abdominal pain found to have gallstones at that time of initial admission LFTs were normal. Patient was sent home for an elective cholecystectomy. Patient had a developed persistent and worsening of the abdominal pain came back to the ER. Patient was found to have elevated liver enzymes patient had a moderate right with the MRCP done which was negative for gallstones and a mass in CBD stone. Repeat ultrasound was reported as no stone in the gallbladder. Patient did mention that her SYMPTOMS of pain disappeared after 2:30 PM today. No further episodes of pain she noticed it. And one possibility is patient may have passed to the stone. But the concern is the the delayed HIDA scan showed no bowel activity. We will start the patient on clear liquid diet Follow-up LFTs Would consider endoscopy ultrasound if the LFTs shows an upward trend or not decreasing to further evaluate gallbladder and CBD 10/09/18 21:48
--- NOTE | 2018-10-09 08:43 | CP.PCM.PN ---
Subjective - Date & Time of Evaluation Date of Evaluation: 10/09/18 Time of Evaluation: 08:40 - Subjective Subjective: No Connor PGY1 Progress Note for Dr. Jackson Pt was examined at bedside this morning. She reports feeling jittery overnight, which she attributes to toradol and poor sleeping environment. She denies fever, chills, diarrhea, abdominal pain. She does complain of some nausea this morning. Objective - Vital Signs/Intake and Output Vital Signs (last 24 hours): Temp Pulse Resp BP Pulse Ox 98.4 F 72 18 150/84 96 10/08/18 23:19 10/08/18 23:19 10/08/18 23:19 10/08/18 23:19 10/08/18 23:19 Intake and Output: 10/09/18 10/09/18 06:59 18:59 Intake Total 525 Balance 525 - Medications Medications: Current Medications Dextrose/Sodium Chloride (Dextrose 5%/0.45% Ns 1000 Ml) 1,000 mls @ 75 mls/hr IV .[id number] ARCENIO Last Admin: 10/08/18 20:59 Dose: 75 mls/hr Ketorolac Tromethamine (Toradol) 15 mg IVP Q6H PRN PRN Reason: Pain, Mild (1-3) Last Admin: 10/08/18 22:14 Dose: 15 mg Ondansetron HCl (Zofran Inj) 4 mg IVP Q4H PRN PRN Reason: Nausea/Vomiting Last Admin: 10/09/18 07:51 Dose: 4 mg - Labs Labs: 10/09/18 06:30 10/09/18 06:30 PT 12.7 SECONDS (9.4-12.5) H 10/08/18 19:31 INR 1.14 10/08/18 19:31 APTT 31.0 Seconds (26.9-38.3) 10/08/18 19:31 - Constitutional Appears: Well, No Acute Distress - Head Exam Head Exam: ATRAUMATIC, NORMOCEPHALIC - Eye Exam Eye Exam: EOMI Pupil Exam: NORMAL ACCOMODATION - ENT Exam ENT Exam: Mucous Membranes Moist - Neck Exam Neck Exam: Normal Inspection - Respiratory Exam Respiratory Exam: Clear to Ausculation Bilateral, NORMAL BREATHING PATTERN. absent: Rales, Rhonchi, Wheezes - Cardiovascular Exam Cardiovascular Exam: REGULAR RHYTHM, +S1 - GI/Abdominal Exam GI & Abdominal Exam: Soft, Normal Bowel Sounds. absent: Distended, Tenderness - Extremities Exam Extremities Exam: absent: Pedal Edema - Neurological Exam Neurological Exam: Alert, Awake, Oriented x3 - Psychiatric Exam Psychiatric exam: Anxious - Skin Skin Exam: Normal Color Assessment and Plan - Assessment and Plan (Free Text) Assessment: 53yo F with no PMH admitted for choledocholithiasis. Plan: - transaminitis uptrending - NPO - f/u MRCP - GI consulted, Dr. Breen - for ERCP 10/10 - cholecystectomy likely following ERCP - pain control - IVF - Benadryl PRN insomnia - further recs as per Dr. Jackson
[2018-10-09] MEDS: Dextrose 5%/0.45% NS 1,000 ML IV SCH (09:50)
--- NOTE | 2018-10-09 13:17 | CP.PCM.CON ---
<Jose Francisco Muller - Last Filed: 10/09/18 13:11> History of Present Illness - History of Present Illness History of Present Illness: Jose Francisco Muller D.O. PGY-3, Internal Medicine Resident, Infectious Disease Consultation Note 53-year-old female with a past medical history of hypercholesterolemia and cholelithiasis who presented for complaints of epigastric and right upper q uadrant pain for approximately 2 days. Infectious disease consultation was requested for fever. Patient was seen and examined at bedside with present at bedside. Patient states that she presented here 09/30 for these complaints of epigastric pain and was found to have gallstones. Patient was advised to follow-up with general surgery at that time and was scheduled for cholecystectomy with Dr. Dominguez on 10/16. However, patient began to have severe pain that was not responsive to Motrin [id number] multiple times a day. Patient states that she had some nausea but no vomiting, chills, diarrhea, chest pain, shortness of breath, dizziness, headache, or other complaints. Of note, patient states that her pain right now is completely resolved. Patient states that since earlier t irene the pain suddenly relieved. Of note, the patient has not had a bowel movement in approximately 2-3 days when the pain originally started. Patient has a history of hernia repair and one . Smokes ~1/2ppd for years. No EtOH or drug use. Review of Systems - Review of Systems All systems: reviewed and no additional remarkable complaints except (as per HPI) Past Patient History - Infectious Disease Hx of Infectious Diseases: None - Past Social History Smoking Status: Light Smoker < 10 Cigarettes Daily - CARDIAC Hx Hypercholesterolemia: Yes - PULMONARY Hx Respiratory Disorders: No - NEUROLOGICAL Hx Neurological Disorder: No - HEENT Hx HEENT Problems: No - RENAL Hx Chronic Kidney Disease: No - ENDOCRINE/METABOLIC Hx Endocrine Disorders: No - HEMATOLOGICAL/ONCOLOGICAL Hx Blood Disorders: No - INTEGUMENTARY Hx Dermatological Problems: No - MUSCULOSKELETAL/RHEUMATOLOGICAL Hx Falls: No - GASTROINTESTINAL Hx Gall Bladder Disease: Yes (gallstones) - PSYCHIATRIC Hx Substance Use: No - SURGICAL HISTORY Other/Comment: LEFT INGUINAL HERNIA REPAIR - ANESTHESIA Hx Anesthesia: Yes Hx Anesthesia Reactions: No Hx Malignant Hyperthermia: No Meds Allergies/Adverse Reactions: Allergies Allergy/AdvReac Type Severity Reaction Status Date / Time No Known Allergies Allergy Verified 09/30/18 07:32 - Medications Medications: Current Medications Acetaminophen (Tylenol 325mg Tab) 650 mg PO Q6H PRN PRN Reason: Other Last Admin: 10/09/18 12:31 Dose: 650 mg Dextrose/Sodium Chloride (Dextrose 5%/0.45% Ns 1000 Ml) 1,000 mls @ 75 mls/hr IV .[id number] ARCENIO Last Admin: 10/09/18 09:50 Dose: 75 mls/hr Ketorolac Tromethamine (Toradol) 15 mg IVP Q6H PRN PRN Reason: Pain, Mild (1-3) Last Admin: 10/08/18 22:14 Dose: 15 mg Ondansetron HCl (Zofran Inj) 4 mg IVP Q4H PRN PRN Reason: Nausea/Vomiting Last Admin: 10/09/18 07:51 Dose: 4 mg Physical Exam - Constitutional Appears: Non-toxic, No Acute Distress - Head Exam Head Exam: ATRAUMATIC, NORMOCEPHALIC - Eye Exam Eye Exam: EOMI. absent: Scleral icterus - ENT Exam ENT Exam: Mucous Membranes Moist - Neck Exam Neck exam: Positive for: Normal Inspection - Respiratory Exam Respiratory Exam: Clear to Auscultation Bilateral. absent: Rales, Rhonchi, Wheezes - Cardiovascular Exam Cardiovascular Exam: +S1, +S2. absent: Gallop, Rubs - GI/Abdominal Exam GI & Abdominal Exam: Normal Bowel Sounds, Soft. absent: Distended, Tenderness - Extremities Exam Extremities exam: Negative for: calf tenderness, pedal edema - Neurological Exam Neurological exam: Alert, Oriented x3 - Skin Skin Exam: Dry, Warm Results - Vital Signs Recent Vital Signs: Last Vital Signs Temp 100.3 F H 10/09/18 12:31 Pulse 73 10/09/18 06:00 Resp 18 10/09/18 06:00 BP 145/71 10/09/18 06:00 Pulse Ox 95 10/09/18 06:00 - Labs Result Diagrams: 10/09/18 06:30 10/09/18 06:30 Labs: Laboratory Results - last 24 hr 10/08/18 10/08/18 10/08/18 19:31 19:31 19:31 WBC 10.2 RBC 4.74 Hgb 13.8 Hct 39.7 MCV 83.8 MCH 29.1 MCHC 34.8 RDW 12.0 Plt Count 383 MPV 9.0 Neut % (Auto) 75.7 H Lymph % (Auto) 13.4 L [place] % (Auto) 8.7 H Eos % (Auto) 1.8 Baso % (Auto) 0.4 Lymph # (Auto) 1.4 [place] # (Auto) 0.9 H Eos # (Auto) 0.2 Baso # (Auto) 0.04 Absolute Neuts (auto) 7.71 H PT 12.7 H INR 1.14 APTT 31.0 Sodium 138 Potassium 4.0 Chloride 100 Carbon Dioxide 29 Anion Gap 13 BUN 13 Creatinine 0.7 Est GFR ( Amer) > 60 Est GFR (Non-Af Amer) > 60 Random Glucose 122 H Calcium 10.0 Total Bilirubin 3.3 H Direct Bilirubin 2.0 H AST 803 H D ALT 623 H Alkaline Phosphatase 227 H D Total Protein 7.9 Albumin 4.1 Globulin 3.8 Albumin/Globulin Ratio 1.1 Lipase 56 10/09/18 10/09/18 06:30 06:30 WBC 10.0 RBC 4.52 Hgb 12.9 Hct 37.9 MCV 83.8 MCH 28.5 MCHC 34.0 RDW 12.2 Plt Count 367 MPV 9.2 Neut % (Auto) Lymph % (Auto) [place] % (Auto) Eos % (Auto) Baso % (Auto) Lymph # (Auto) [place] # (Auto) Eos # (Auto) Baso # (Auto) Absolute Neuts (auto) PT INR APTT Sodium 141 Potassium 3.7 Chloride 100 Carbon Dioxide 29 Anion Gap 16 BUN 11 Creatinine 0.6 L Est GFR ( Amer) > 60 Est GFR (Non-Af Amer) > 60 Random Glucose 132 H Calcium 9.4 Total Bilirubin 4.2 H Direct Bilirubin AST 918 H ALT 844 H Alkaline Phosphatase 235 H Total Protein 7.3 Albumin 3.6 Globulin 3.7 Albumin/Globulin Ratio 1.0 L Lipase Assessment & Plan - Assessment and Plan (Free Text) Assessment: 53-year-old female with a past medical history of hypercholesterolemia and cholelithiasis who presented for complaints of epigastric and right upper quadrant pain for approximately 2 days. Infectious disease consultation was requested for fever. Plan: Sepsis 2/4 likely biliary source Cholelithiasis Possible choledocholithiasis Tobacco abuse Obesity Pending MRCP Evaluation by surgery and by GI reviewed and appreciated Will empirically start zosyn Pattern of AST and ALT with alk phos could also be hepatitis, will get hepatitis panel HIV panel Blood cultures UA and urine cultures If did have a stone, relief of pain may signal that she passed it Patient was seen and examined and case will be discussed with attending physician Thank you for the pleasure of participating in the care of this interesting patient - Date & Time Date: 10/09/18 Time: 13:41 <Leander Schultz - Last Filed: 10/09/18 21:58> Meds - Medications Medications: Current Medications Acetaminophen (Tylenol 325mg Tab) 650 mg PO Q6H PRN PRN Reason: Other Last Admin: 10/09/18 12:31 Dose: 650 mg Dextrose/Sodium Chloride (Dextrose 5%/0.45% Ns 1000 Ml) 1,000 mls @ 75 mls/hr IV .[id number] ARCENIO Last Admin: 10/09/18 09:50 Dose: 75 mls/hr Piperacillin Sod/Tazobactam Sod (Zosyn 3.375 In Ns 100ml) 100 mls @ 200 mls/hr IVPB Q8H ARCENIO; Protocol Stop: 10/16/18 13:46 Last Admin: 10/09/18 17:55 Dose: 200 mls/hr Potassium Chloride (Potassium Chloride 20 Meq/100 Ml) 20 meq in 100 mls @ 50 mls/hr IVPB ONCE ONE Stop: 10/09/18 23:51 Ketorolac Tromethamine (Toradol) 15 mg IVP Q6H PRN PRN Reason: Pain, Mild (1-3) Last Admin: 10/09/18 15:09 Dose: 15 mg Ondansetron HCl (Zofran Inj) 4 mg IVP Q4H PRN PRN Reason: Nausea/Vomiting Last Admin: 10/09/18 07:51 Dose: 4 mg Results - Vital Signs Recent Vital Signs: Last Vital Signs Temp 99.1 F 10/09/18 14:00 Pulse 84 10/09/18 14:00 Resp 18 10/09/18 14:00 BP 115/71 10/09/18 14:00 Pulse Ox 94 L 10/09/18 14:00 - Labs Result Diagrams: 10/09/18 19:27 10/09/18 19:27 Labs: Laboratory Results - last 24 hr 10/09/18 10/09/18 10/09/18 06:30 06:30 14:10 WBC 10.0 RBC 4.52 Hgb 12.9 Hct 37.9 MCV 83.8 MCH 28.5 MCHC 34.0 RDW 12.2 Plt Count 367 MPV 9.2 Sodium 141 Potassium 3.7 Chloride 100 Carbon Dioxide 29 Anion Gap 16 BUN 11 Creatinine 0.6 L Est GFR ( Amer) > 60 Est GFR (Non-Af Amer) > 60 Random Glucose 132 H Calcium 9.4 Total Bilirubin 4.2 H AST 918 H ALT 844 H Alkaline Phosphatase 235 H Total Protein 7.3 Albumin 3.6 Globulin 3.7 Albumin/Globulin Ratio 1.0 L Urine Color Dark yellow Urine Appearance Slight-cloudy Urine pH 6.0 Ur Specific [place] >= 1.030 Urine Protein Trace H Urine Glucose (UA) Negative Urine Ketones Trace H Urine Blood Negative Urine Nitrate Positive H Urine Bilirubin Large H Urine Urobilinogen 1.0 H Ur Leukocyte Esterase Negative Urine RBC 0 - 2 Urine WBC 1 - 3 Ur Epithelial Cells None Urine Bacteria Small 10/09/18 10/09/18 19:27 19:27 WBC 9.8 RBC 4.06 Hgb 11.7 L Hct 34.5 L MCV 85.0 MCH 28.8 MCHC 33.9 RDW 12.3 Plt Count 280 MPV 9.0 Sodium 137 Potassium 3.3 L Chloride 101 Carbon Dioxide 28 Anion Gap 11 BUN 12 Creatinine 0.7 Est GFR ( Amer) > 60 Est GFR (Non-Af Amer) > 60 Random Glucose 121 H Calcium 8.7 Total Bilirubin 5.2 H AST 685 H D ALT 796 H Alkaline Phosphatase 253 H Total Protein 6.7 Albumin 3.2 Globulin 3.4 Albumin/Globulin Ratio 0.9 L Urine Color Urine Appearance Urine pH Ur Specific [place] Urine Protein Urine Glucose (UA) Urine Ketones Urine Blood Urine Nitrate Urine Bilirubin Urine Urobilinogen Ur Leukocyte Esterase Urine RBC Urine WBC Ur Epithelial Cells Urine Bacteria Attending/Attestation - Attestation I have personally seen and examined this patient.: Yes I have fully participated in the care of the patient.: Yes I have reviewed all pertinent clinical information: Yes
[2018-10-09] MEDS ORDERED: Barium Sulfate Susp 2.1% w/v, 2.0% w/w 450 mL Bottle PO ONE (13:52)
[2018-10-09 15:12] LABS: URINE APPEARANCE SLIGHT-CLOUDY (CLEAR); URINE BILIRUBIN LARGE (NEGATIVE); URINE BLOOD NEGATIVE (NEGATIVE); URINE COLOR DARK YELLOW (YELLOW); URINE GLUCOSE (UA) NEGATIVE (NEGATIVE); URINE LEUKOCYTE ESTERASE NEGATIVE Leu/uL (NEGATIVE); URINE PROTEIN TRACE mg/dL (<30 mg/dL)
[2018-10-09 15:16] LABS: URINE RBC 0 - 2 /hpf (0-2)
[2018-10-09 15:17] LABS: URINE BACTERIA SMALL /hpf
--- NOTE | 2018-10-09 16:52 | US ---
Date of service: 10/09/2018 HISTORY: RUQ pain, elevated bili and LFT COMPARISON: 09/30/2018. Abdominal ultrasound TECHNIQUE: Sonographic evaluation of the abdomen. FINDINGS: LIVER: Measures 13.3 cm. Patent portal vein. Portal venous flow: Hepatopetal. Unremarkable echogenicity of the liver parenchyma. No mass. No intrahepatic bile duct dilatation. GALLBLADDER: Cholelithiasis. Negative study for gallbladder wall thickening, pericholecystic fluid, sonographic Pratt's sign. COMMON BILE DUCT: Measures 5.7 mm. No stones. No dilatation. PANCREAS: Unremarkable as visualized. No mass. No ductal dilatation. RIGHT KIDNEY: Measures 5.1 x 11.1cm. Normal echogenicity. No calculus, mass, or hydronephrosis. LEFT KIDNEY: Measures 5.8 x 9.7cm. Normal echogenicity. No calculus, mass, or hydronephrosis. SPLEEN: Normal in size and contour. No mass. AORTA: No aneurysmal dilatation. IVC: Unremarkable. OTHER FINDINGS: None. IMPRESSION: Cholelithiasis. No sonographic evidence of acute cholecystitis. No significant interval change compared to the prior examination(s).
--- NOTE | 2018-10-09 17:35 | CARD ---
APPROVED REPORT Date of service: 10/08/2018 EKG Measurement Heart [id number] <Conclusion> Normal sinus rhythm with sinus arrhythmia Possible Left atrial enlargement Borderline ECG
--- NOTE | 2018-10-09 17:35 | MRI ---
Date of service: 10/09/2018 PROCEDURE: Magnetic Resonance Cholangiopancreatography HISTORY: COMPARISON: Comparison is made with the previous ultrasound of the abdomen dated 09/30/2018 TECHNIQUE: Multiplanar, multisequence MR images of the abdomen were obtained, including heavily T2 weighted MRCP images of the biliary system. Rotating maximum intensity projection images of the biliary system were generated. FINDINGS: MRCP: The common bile duct is of a normal caliber. No evidence of choledocholithiasis. No intrahepatic biliary ductal dilatation. LIVER: Mild hepatic steatosis is noted. No evidence of mass lesion in the liver appear GALLBLADDER: There is no evidence of cholelithiasis or cholecystitis. SPLEEN: Unremarkable. PANCREAS: Unremarkable. ADRENALS: Unremarkable. KIDNEYS: Unremarkable. AORTA: No aneurysm. ASCITES: None. OTHER FINDINGS: None. IMPRESSION: No evidence of cholelithiasis or cholecystitis. No evidence of choledocholithiasis or biliary ductal dilatation. Mild hepatic steatosis.
[2018-10-09] MEDS: Piperacillin/Tazobact 3.375 gm 100 ML IVPB SCH (17:55)
[2018-10-09 19:31] LABS: HEMOGLOBIN 11.7 g/dL (12.0-16.0); MEAN CORPUSCULAR HEMOGLOBIN 28.8 pg (25.0-35.0); MEAN CORPUSCULAR HGB CONC 33.9 g/dl (31.0-37.0); RBC 4.06 10^6/uL (3.5-6.1); RED CELL DISTRIBUTION WIDTH 12.3 % (11.5-14.5); WHITE BLOOD COUNT 9.8 10^3/uL (4.5-11.0)
--- NOTE | 2018-10-09 20:36 | HP ---
DATE OF EXAM: 10/09/2018 HISTORY OF PRESENT ILLNESS: The patient is a 53-year-old white female who presented to the emergency room with increasing right upper quadrant pain. The patient was seen in the emergency room on 09/30/2018 with right upper quadrant pain. At that time, it was demonstrated that the patient did have cholelithiasis. The pain is resolved, she was discharged and was supposed to have surgery this following week. The patient presented to the emergency room with the pain. Repeat labs showed an increase of LFTs including total bili of 3.3. PAST MEDICAL HISTORY: None. PAST SURGICAL HISTORY: Left inguinal repair 30 years ago apart from the right upper quadrant pain. REVIEW OF SYSTEMS: Unremarkable. ALLERGIES: NO KNOWN ALLERGIES. SOCIAL HISTORY: The patient is a nonsmoker and does not use illicit drugs. PHYSICAL EXAMINATION: VITAL SIGNS: Temperature of 98.2, pulse rate of 73, blood pressure of 145/71, respiratory rate of 18 with an O2 saturation 95% on room air. HEENT: PERRLA. EOMI. There is no icterus present. NECK: Supple with full range of motion. LUNGS: Clear to auscultation and percussion bilaterally. HEART: Regular rate and rhythm. No murmurs, rubs or gallops. ABDOMEN: Soft and nontender. Bowel sounds are normoactive. There is pain in the right upper quadrant on palpation. There is no rebound and bowel sounds are normoactive. EXTREMITIES: Show no deformities or edema. NEUROLOGIC: There are no focal motor deficits. LABORATORY DATA: WBC of 10 and hemoglobin and hematocrit of 12.9 and 37.9. PTT and INR normal. Chemistry shows a random nonfasting glucose of 132, total bilirubin is now up to 4.2. AST and ALT of 918 and 844. The patient will be going for an endoscopic retrograde cholangiopancreatography this morning and possibly surgery later today. CURRENT DIAGNOSIS: Acute cholelithiasis with cholecystitis. Dk Cullen MD
[2018-10-09 20:38] LABS: ALB/GLOB RATIO 0.9 (1.1-1.8); ALBUMIN 3.2 g/dL (3.0-4.8); ALT/SGPT 796 U/L (7-56); AST/SGOT 685 U/L (14-36); BLOOD UREA NITROGEN 12 mg/dL (7-21); CALCIUM 8.7 mg/dL (8.4-10.5); GFR NON-AFRICAN AMERICAN > 60
[2018-10-10] MEDS: Dextrose 5%/0.45% NS 1,000 ML IV SCH (01:03)
[2018-10-10] MEDS: Piperacillin/Tazobact 3.375 gm 100 ML IVPB SCH ×4 (05:46→21:45)
[2018-10-10 07:24] LABS: HEMOGLOBIN 11.5 g/dL (12.0-16.0); MEAN CELL VOLUME 86.8 fl (80.0-105.0); MEAN CORPUSCULAR HEMOGLOBIN 28.7 pg (25.0-35.0); MEAN PLATELET VOLUME 9.6 fl (7.0-11.0); RBC 4.01 10^6/uL (3.5-6.1); RED CELL DISTRIBUTION WIDTH 12.3 % (11.5-14.5); WHITE BLOOD COUNT 7.6 10^3/uL (4.5-11.0)
[2018-10-10 08:04] LABS: ALBUMIN 3.2 g/dL (3.0-4.8); ALT/SGPT 677 U/L (7-56); AST/SGOT 423 U/L (14-36); BLOOD UREA NITROGEN 9 mg/dL (7-21); CALCIUM 8.9 mg/dL (8.4-10.5); GFR NON-AFRICAN AMERICAN > 60
--- NOTE | 2018-10-10 08:31 | CP.PCM.PN ---
Subjective - Date & Time of Evaluation Date of Evaluation: 10/10/18 Time of Evaluation: 08:27 - Subjective Subjective: Surgery Progress Note for Dr. Jackson covering for Dr. Dominguez 53F seen and evaluated at bedside this morning. No acute events overnight. Patient states she had a sharp RUQ/epigastric abdominal pain last night that then resolved and she has had no pain since then. Her urine was initially dark and last few voids have been light yellow and normal for patient. Denies f/c, n/v/d, SOB, CP, or urinary symptoms. Objective - Vital Signs/Intake and Output Vital Signs (last 24 hours): Temp Pulse Resp BP Pulse Ox 99 F 76 18 115/70 94 L 10/09/18 22:00 10/09/18 22:00 10/09/18 22:00 10/09/18 22:00 10/09/18 22:00 Intake and Output: 10/10/18 10/10/18 06:59 18:59 Intake Total 1800 Balance 1800 - Medications Medications: Current Medications Acetaminophen (Tylenol 325mg Tab) 650 mg PO Q6H PRN PRN Reason: Other Last Admin: 10/09/18 12:31 Dose: 650 mg Dextrose/Sodium Chloride (Dextrose 5%/0.45% Ns 1000 Ml) 1,000 mls @ 75 mls/hr IV .[id number] [facility] Last Admin: 10/10/18 01:03 Dose: 75 mls/hr Piperacillin Sod/Tazobactam Sod (Zosyn 3.375 In Ns 100ml) 100 mls @ 200 mls/hr IVPB Q8H [facility]; Protocol Stop: 10/16/18 13:46 Last Admin: 10/10/18 05:46 Dose: 200 mls/hr Potassium Chloride (Potassium Chloride 20 Meq/100 Ml) 20 meq in 100 mls @ 50 mls/hr IVPB Q2H [facility] Stop: 10/10/18 12:14 Ketorolac Tromethamine (Toradol) 15 mg IVP Q6H PRN PRN Reason: Pain, Mild (1-3) Last Admin: 10/09/18 15:09 Dose: 15 mg Ondansetron HCl (Zofran Inj) 4 mg IVP Q4H PRN PRN Reason: Nausea/Vomiting Last Admin: 10/09/18 07:51 Dose: 4 mg - Labs Labs: 10/10/18 06:30 10/10/18 06:30 PT 12.7 SECONDS (9.4-12.5) H 10/08/18 19:31 INR 1.14 10/08/18 19:31 APTT 31.0 Seconds (26.9-38.3) 10/08/18 19:31 - Constitutional Appears: Well, Non-toxic, No Acute Distress - Head Exam Head Exam: ATRAUMATIC, NORMAL INSPECTION, NORMOCEPHALIC - Eye Exam Eye Exam: EOMI - ENT Exam ENT Exam: Mucous Membranes Moist - Respiratory Exam Respiratory Exam: NORMAL BREATHING PATTERN. absent: Wheezes, Respiratory Distress - Cardiovascular Exam Cardiovascular Exam: REGULAR RHYTHM, +S1, +S2. absent: Tachycardia, Murmur - GI/Abdominal Exam GI & Abdominal Exam: Soft, Normal Bowel Sounds. absent: Distended, Guarding, Tenderness, Rebound - Neurological Exam Neurological Exam: Alert, Awake, Oriented x3 - Psychiatric Exam Psychiatric exam: Normal Affect, Normal Mood - Skin Skin Exam: Dry, Intact, Normal Color, Warm Assessment and Plan - Assessment and Plan (Free Text) Assessment: 53F w/ choledocholithiasis HIDA showed filling defect of gallbladder Plan: Continue to monitor LFTs CLD, per GI GI recommending EUS if LFTs worsen - will continue to f/u on any pending in tervention Cholecystectomy following GI intervention, if any Antiemetics and analgesics PRN D/w Dr. Renetta Chavez PGY1
--- NOTE | 2018-10-10 13:41 | PN ---
SUBJECTIVE: The patient was seen and examined at bedside on the general medical carlin. No acute events overnight. She remains afebrile, hemodynamically stable and with significant improvement in her abdominal discomfort. She has ongoing GI and surgical workup given her presentation with cholelithiasis but overall feels improved and offers no complaints. PHYSICAL EXAMINATION: VITAL SIGNS: Temperature 99, pulse 76, blood pressure 115/70, respiratory rate 18, oxygen saturation 94% on room air. GENERAL: No apparent distress. HEENT: PERRL, EOMI. No scleral icterus. No conjunctival pallor. NECK: No JVD, no bruits. LUNGS: Clear to auscultation. CARDIOVASCULAR: Regular rate and rhythm. Normal S1, S2. ABDOMEN: Normoactive bowel sounds, soft, nontender, nondistended. EXTREMITIES: No edema. NEUROLOGIC: Awake, alert and oriented x 3. No focal motor deficits. LABORATORY DATA: WBC 7.6, hemoglobin 11.5, hematocrit 35, platelets 295. Sodium 138, potassium 3.4, chloride 104, bicarb 28, BUN 9, creatinine 0.6, glucose 101. AST 423, ALT 677, alkaline phosphatase 249, T bili 4.5. ASSESSMENT: The patient is a 53-year-old woman with no significant past medical history who was admitted for management of symptomatic cholelithiasis. PLAN: 1. Cholelithiasis. Input from Dr. Breen and Dr. Jackson noted. Workup ongoing. Continue with current care. 2. Prophylaxis. GI prophylaxis not indicated as the patient is eating. DVT prophylaxis not indicated as the patient is ambulatory. CODE STATUS: Full code. Oskar Cullen MD MTDPrincess
--- NOTE | 2018-10-10 18:51 | CP.PCM.PN ---
<Rylan Lieberman - Last Filed: 10/10/18 18:47> Subjective - Date & Time of Evaluation Date of Evaluation: 10/10/18 Time of Evaluation: 09:00 - Subjective Subjective: PGY5 GI Follow-up Pt seen and examined bedside abd pain imrpoved +BM tolerating clears denies any nausea/v/d ROS: 12 point ROS conducted, neg other than above Objective - Vital Signs/Intake and Output Vital Signs (last 24 hours): Temp Pulse Resp BP Pulse Ox 101 F H 75 18 122/80 96 10/10/18 16:42 10/10/18 14:00 10/10/18 14:00 10/10/18 14:00 10/10/18 14:00 Intake and Output: 10/10/18 10/10/18 06:59 18:59 Intake Total 1800 680 Balance 1800 680 - Medications Medications: Current Medications Acetaminophen (Tylenol 325mg Tab) 650 mg PO Q6H PRN PRN Reason: Other Last Admin: 10/09/18 12:31 Dose: 650 mg Dextrose/Sodium Chloride (Dextrose 5%/0.45% Ns 1000 Ml) 1,000 mls @ 75 mls/hr IV .[id number] [facility] Last Admin: 10/10/18 01:03 Dose: 75 mls/hr Piperacillin Sod/Tazobactam Sod (Zosyn 3.375 In Ns 100ml) 100 mls @ 200 mls/hr IVPB Q8H [facility]; Protocol Stop: 10/16/18 13:46 Last Admin: 10/10/18 13:06 Dose: 200 mls/hr Ketorolac Tromethamine (Toradol) 15 mg IVP Q6H PRN PRN Reason: Pain, Mild (1-3) Last Admin: 10/10/18 16:42 Dose: 15 mg Ondansetron HCl (Zofran Inj) 4 mg IVP Q4H PRN PRN Reason: Nausea/Vomiting Last Admin: 10/09/18 07:51 Dose: 4 mg - Labs Labs: 10/10/18 06:30 10/10/18 06:30 PT 12.7 SECONDS (9.4-12.5) H 10/08/18 19:31 INR 1.14 10/08/18 19:31 APTT 31.0 Seconds (26.9-38.3) 10/08/18 19:31 - Constitutional Appears: Well, No Acute Distress - Head Exam Head Exam: ATRAUMATIC, NORMOCEPHALIC - Eye Exam Eye Exam: Normal appearance - ENT Exam ENT Exam: Mucous Membranes Moist, Normal Exam - Neck Exam Neck Exam: Normal Inspection - Respiratory Exam Respiratory Exam: Clear to Ausculation Bilateral, NORMAL BREATHING PATTERN. absent: Rales, Rhonchi, Wheezes, Respiratory Distress - Cardiovascular Exam Cardiovascular Exam: REGULAR RHYTHM, +S1, +S2 - GI/Abdominal Exam GI & Abdominal Exam: Soft, Normal Bowel Sounds. absent: Distended, Firm, Guarding, Rigid, Tenderness, Organomegaly, Pulsatile Mass, Rebound - Extremities Exam Extremities Exam: absent: Joint Swelling, Pedal Edema - Neurological Exam Neurological Exam: Alert, Awake, Oriented x3 - Psychiatric Exam Psychiatric exam: Normal Affect, Normal Mood - Skin Skin Exam: Dry, Intact, Normal Color, Warm Assessment and Plan - Assessment and Plan (Free Text) Assessment: 53 year old female with no significant medical history admitted for choledocolithiasis. ABD US reviewed from prior ED visit. Patient with no significant signs of sepsis at this time. Plan: - LFTs trending down - MRCP does not reveal any stones in CBD - surgery on board - abx as per primary team - no plan for EUS/ERCP at this time, will continue to monitor LFTs and reeval tomorrow D/W Dr. Breen <Radha Breen V - Last Filed: 10/11/18 00:57> Objective - Vital Signs/Intake and Output Vital Signs (last 24 hours): Temp Pulse Resp BP Pulse Ox 98.9 F 79 18 117/71 94 L 10/10/18 22:50 10/10/18 22:50 10/10/18 22:50 10/10/18 22:50 10/10/18 22:50 Intake and Output: 10/10/18 10/11/18 18:59 06:59 Intake Total 680 Balance 680 - Medications Medications: Current Medications Acetaminophen (Tylenol 325mg Tab) 650 mg PO Q6H PRN PRN Reason: Other Last Admin: 10/09/18 12:31 Dose: 650 mg Dextrose/Sodium Chloride (Dextrose 5%/0.45% Ns 1000 Ml) 1,000 mls @ 75 mls/hr IV .[id number] [facility] Last Admin: 10/10/18 01:03 Dose: 75 mls/hr Piperacillin Sod/Tazobactam Sod (Zosyn 3.375 In Ns 100ml) 100 mls @ 200 mls/hr IVPB Q8H [facility]; Protocol Stop: 10/16/18 13:46 Last Admin: 10/10/18 21:45 Dose: 200 mls/hr Ketorolac Tromethamine (Toradol) 15 mg IVP Q6H PRN PRN Reason: Pain, Mild (1-3) Last Admin: 10/10/18 16:42 Dose: 15 mg Ondansetron HCl (Zofran Inj) 4 mg IVP Q4H PRN PRN Reason: Nausea/Vomiting Last Admin: 10/09/18 07:51 Dose: 4 mg - Labs Labs: 10/10/18 06:30 10/10/18 06:30 PT 12.7 SECONDS (9.4-12.5) H 10/08/18 19:31 INR 1.14 10/08/18 19:31 APTT 31.0 Seconds (26.9-38.3) 10/08/18 19:31 Attending/Attestation - Attestation I have personally seen and examined this patient.: Yes I have fully participated in the care of the patient.: Yes I have reviewed all pertinent clinical information, including history, physical exam and plan: Yes Notes (Text): This patient was seen and evaluated along with the GI fellow here earlier. This is an addendum to the GI progress report dictated by the fellow. LFT shows slight downward trend Etiology LFTs continue to show a downward trend we will monitor it. If there is any significant elevation of LFT or if it is not coming down would consider EUS if needed ERCP 10/11/18 00:52
--- NOTE | 2018-10-10 22:43 | PN ---
DATE: 10/10/2018 SUBJECTIVE: The patient is in bed in no acute distress and low grade fevers, still having abdominal pain, did have a fever this morning. PHYSICAL EXAMINATION: VITAL SIGNS: Temperature is 101, blood pressure is 120/80, and respiratory rate of 18. HEENT: Unremarkable. NECK: Supple. LUNGS: Have decreased breath sounds. HEART: Normal S1 and S2. ABDOMEN: Soft and nontender. LABORATORY DATA: Reveals a white count of 7.6, hemoglobin of 11, and platelets of 295. BUN of 9 and creatinine 0.6. Urinalysis is noted. Microbiology reveals the blood cultures no growth of 24 hours. MEDICATIONS: Review of orders reveals the patient is on piperacillin. Dr. Oskar Cullen's note is reviewed. Mio's progress note is also reviewed. No plan for EUS at this time or ERCP. Somewhat improved in the LFTs. ASSESSMENT AND PLAN: This is a 53-year-old female with no known allergies with a history of high cholesterol, cholelithiasis, now presenting with liver function test elevation fevers, abdominal pain with sepsis with biliary source with cholelithiasis and possible choledocholithiasis in a patient who is tobacco using. GI and Surgery are consulted. Continue the Zosyn. Cultures thus far are negative. Leander Schultz MD
[2018-10-11] MEDS: Piperacillin/Tazobact 3.375 gm 100 ML IVPB SCH ×3 (06:31→21:48)
[2018-10-11 07:34] LABS: HEMOGLOBIN 11.3 g/dL (12.0-16.0); MEAN CELL VOLUME 86.9 fl (80.0-105.0); MEAN CORPUSCULAR HGB CONC 33.4 g/dl (31.0-37.0); MEAN PLATELET VOLUME 9.9 fl (7.0-11.0); RBC 3.89 10^6/uL (3.5-6.1); RED CELL DISTRIBUTION WIDTH 12.4 % (11.5-14.5); WHITE BLOOD COUNT 7.6 10^3/uL (4.5-11.0)
[2018-10-11 07:58] LABS: ALB/GLOB RATIO 0.9 (1.1-1.8); ALT/SGPT 440 U/L (7-56); AST/SGOT 174 U/L (14-36); BLOOD UREA NITROGEN 6 mg/dL (7-21); CALCIUM 8.7 mg/dL (8.4-10.5); GFR NON-AFRICAN AMERICAN > 60
--- NOTE | 2018-10-11 09:12 | CP.PCM.PN ---
Subjective - Date & Time of Evaluation Date of Evaluation: 10/11/18 Time of Evaluation: 06:50 - Subjective Subjective: Surgery Progress note. Dr. Jackson (Covering for Dr. Dominguez) Pt seen and examined at bedside. Still reports RUQ pain. No N/V/D. Tolerating Clears. Still reports chills. Tmax of 101F yesterday 5PM. No new complaints. Objective - Vital Signs/Intake and Output Vital Signs (last 24 hours): Temp Pulse Resp BP Pulse Ox 99.6 F 75 18 137/77 96 10/11/18 06:00 10/11/18 06:00 10/11/18 06:00 10/11/18 06:00 10/11/18 06:00 - Medications Medications: Current Medications Acetaminophen (Tylenol 325mg Tab) 650 mg PO Q6H PRN PRN Reason: Other Last Admin: 10/09/18 12:31 Dose: 650 mg Dextrose/Sodium Chloride (Dextrose 5%/0.45% Ns 1000 Ml) 1,000 mls @ 75 mls/hr IV .[id number] [facility] Last Admin: 10/10/18 01:03 Dose: 75 mls/hr Piperacillin Sod/Tazobactam Sod (Zosyn 3.375 In Ns 100ml) 100 mls @ 200 mls/hr IVPB Q8H [facility]; Protocol Stop: 10/16/18 13:46 Last Admin: 10/11/18 06:31 Dose: 200 mls/hr Ketorolac Tromethamine (Toradol) 15 mg IVP Q6H PRN PRN Reason: Pain, Mild (1-3) Last Admin: 10/10/18 16:42 Dose: 15 mg Ondansetron HCl (Zofran Inj) 4 mg IVP Q4H PRN PRN Reason: Nausea/Vomiting Last Admin: 10/09/18 07:51 Dose: 4 mg - Labs Labs: 10/11/18 07:00 10/11/18 07:00 PT 12.7 SECONDS (9.4-12.5) H 10/08/18 19:31 INR 1.14 10/08/18 19:31 APTT 31.0 Seconds (26.9-38.3) 10/08/18 19:31 - Constitutional Appears: Well, Non-toxic, No Acute Distress - Head Exam Head Exam: ATRAUMATIC, NORMAL INSPECTION, NORMOCEPHALIC - Eye Exam Eye Exam: EOMI Additional comments: mild scleral icterus noted, improving from yesterday - ENT Exam ENT Exam: Mucous Membranes Moist - Respiratory Exam Respiratory Exam: NORMAL BREATHING PATTERN. absent: Accessory Muscle Use, Respiratory Distress - Cardiovascular Exam Cardiovascular Exam: RRR. absent: JVD - GI/Abdominal Exam GI & Abdominal Exam: absent: Distended, Firm, Guarding, Rigid, Rebound Additional comments: Soft. Mild tenderness to palpation noted RUQ - Extremities Exam Extremities Exam: Normal Inspection. absent: Calf Tenderness - Neurological Exam Neurological Exam: Alert, Awake, Oriented x3 - Psychiatric Exam Psychiatric exam: Normal Affect, Normal Mood - Skin Skin Exam: Dry, Intact, Normal Color, Warm Assessment and Plan - Assessment and Plan (Free Text) Assessment: 53yo F with possible choledocholithiasis - LFTs and T.Bili trending down; likely passed stone Plan: - Continue Clears as per GI. NPO after midnight for possible EUS/ERCP tomorrow with the GI team - Antiemetics as needed - DVT ppx, lovenox, SCDs, Antiembolic stockings. - Encourage IS use - May plan for cholecystectomy during this admission. We will continue to monitor patient's clinical status and make recommendations as warranted. Further recs as per Dr. Renetta Lemons PGY2 surgery
--- NOTE | 2018-10-11 11:43 | PN ---
DATE: 10/11/2018 SUBJECTIVE: The patient is in bed, in no acute distress. Temperature is on a downward trend. She did have fevers last night up to 101. PHYSICAL EXAMINATION: This morning, VITAL SIGNS: Temperature is 99.6, blood pressure is 130/70, respiratory rate of 18. HEENT: Unremarkable. NECK: Supple. LUNGS: Have decreased breath sounds. HEART: Normal S1, S2. ABDOMEN: Soft, nontender. LABORATORY DATA: Laboratory examination reveals a white count of 7.6, hemoglobin of 11 and platelets of 284. Chemistries reveals a BUN of 6, creatinine of 0.5. LFTs are improving. Urinalysis is noted. Microbiology reveals the blood cultures are negative. Review of orders reveals the patient is on Zosyn. ASSESSMENT AND PLAN: This is a 53-year-old female with a history of high cholesterol, cholelithiasis, presenting with liver function test elevations, fevers, abdominal pain. Sepsis with biliary source, cholelithiasis and possible choledocholithiasis, history of tobacco use. Gastrointestinal and Surgery are following the patient. Thus far, the blood cultures are negative, on Zosyn. Awaiting for more definitive treatment for underlying pathology. Leander Schultz MD
[2018-10-11] MEDS ORDERED: POLYETHYLENE GLYCOL 3350 17 GM/Dose PACKET PO ONE (13:22)
[2018-10-11] MEDS ORDERED: Enoxaparin 40 mg Syringe SC SCH (14:00)
--- NOTE | 2018-10-11 14:06 | CP.PCM.PN ---
<Rylan Lieberman - Last Filed: 10/11/18 14:06> Subjective - Date & Time of Evaluation Date of Evaluation: 10/11/18 Time of Evaluation: 07:20 - Subjective Subjective: PGY5 GI Follow-up Pt seen and examined bedside Still has RUQ pain +fever last night, tmax 101 5pm denies BM ROS: 12 point ROS conducted, neg other than above Objective - Vital Signs/Intake and Output Vital Signs (last 24 hours): Temp Pulse Resp BP Pulse Ox 99.6 F 75 18 137/77 96 10/11/18 06:00 10/11/18 06:00 10/11/18 06:00 10/11/18 06:00 10/11/18 06:00 - Medications Medications: Current Medications Acetaminophen (Tylenol 325mg Tab) 650 mg PO Q6H PRN PRN Reason: Other Last Admin: 10/09/18 12:31 Dose: 650 mg Enoxaparin Sodium (Lovenox) 40 mg SC DAILY [facility]; Protocol Dextrose/Sodium Chloride (Dextrose 5%/0.45% Ns 1000 Ml) 1,000 mls @ 75 mls/hr IV .[id number] [facility] Last Admin: 10/10/18 01:03 Dose: 75 mls/hr Piperacillin Sod/Tazobactam Sod (Zosyn 3.375 In Ns 100ml) 100 mls @ 200 mls/hr IVPB Q8H [facility]; Protocol Stop: 10/16/18 13:46 Last Admin: 10/11/18 13:23 Dose: 200 mls/hr Ketorolac Tromethamine (Toradol) 15 mg IVP Q6H PRN PRN Reason: Pain, Mild (1-3) Last Admin: 10/10/18 16:42 Dose: 15 mg Ondansetron HCl (Zofran Inj) 4 mg IVP Q4H PRN PRN Reason: Nausea/Vomiting Last Admin: 10/09/18 07:51 Dose: 4 mg - Labs Labs: 10/11/18 07:00 10/11/18 07:00 PT 12.7 SECONDS (9.4-12.5) H 10/08/18 19:31 INR 1.14 10/08/18 19:31 APTT 31.0 Seconds (26.9-38.3) 10/08/18 19:31 - Constitutional Appears: Well, No Acute Distress - Head Exam Head Exam: ATRAUMATIC, NORMOCEPHALIC - Eye Exam Eye Exam: Normal appearance - ENT Exam ENT Exam: Mucous Membranes Moist, Normal Exam - Neck Exam Neck Exam: Normal Inspection - Respiratory Exam Respiratory Exam: Clear to Ausculation Bilateral, NORMAL BREATHING PATTERN. absent: Rhonchi, Wheezes, Respiratory Distress - Cardiovascular Exam Cardiovascular Exam: REGULAR RHYTHM, +S1, +S2 - GI/Abdominal Exam GI & Abdominal Exam: Soft, Tenderness (RUQ and epigastric), Normal Bowel Sounds. absent: Distended, Firm, Guarding, Rigid, Pulsatile Mass, Rebound - Extremities Exam Extremities Exam: absent: Joint Swelling, Pedal Edema - Neurological Exam Neurological Exam: Alert, Awake, Oriented x3 - Psychiatric Exam Psychiatric exam: Normal Affect, Normal Mood - Skin Skin Exam: Dry, Intact, Normal Color, Warm Assessment and Plan - Assessment and Plan (Free Text) Assessment: 53 year old female with no significant medical history admitted for choledocolithiasis. ABD US reviewed from prior ED visit. Patient with no significant signs of sepsis at this time. Plan: - LFTs trending down; likely passed stone -repeat blood cultures - MRCP does not reveal any stones in CBD - surgery on board - abx as per primary team - will continue to monitor - NPO after midnight, for possible procedure - if pt's continues to be febrile and has continued abd pain, will plan for EUS/ERCP tomorrow D/W Dr. Breen <Radha Breen V - Last Filed: 10/11/18 17:24> Objective - Vital Signs/Intake and Output Vital Signs (last 24 hours): Temp Pulse Resp BP Pulse Ox 98.7 F 62 18 138/79 96 10/11/18 15:39 10/11/18 15:39 10/11/18 15:39 10/11/18 15:39 10/11/18 15:39 - Medications Medications: Current Medications Acetaminophen (Tylenol 325mg Tab) 650 mg PO Q6H PRN PRN Reason: Other Last Admin: 10/09/18 12:31 Dose: 650 mg Enoxaparin Sodium (Lovenox) 40 mg SC DAILY [facility]; Protocol Dextrose/Sodium Chloride (Dextrose 5%/0.45% Ns 1000 Ml) 1,000 mls @ 75 mls/hr IV .[id number] [facility] Last Admin: 10/10/18 01:03 Dose: 75 mls/hr Piperacillin Sod/Tazobactam Sod (Zosyn 3.375 In Ns 100ml) 100 mls @ 200 mls/hr IVPB Q8H [facility]; Protocol Stop: 10/16/18 13:46 Last Admin: 10/11/18 13:23 Dose: 200 mls/hr Ketorolac Tromethamine (Toradol) 15 mg IVP Q6H PRN PRN Reason: Pain, Mild (1-3) Last Admin: 10/10/18 16:42 Dose: 15 mg Ondansetron HCl (Zofran Inj) 4 mg IVP Q4H PRN PRN Reason: Nausea/Vomiting Last Admin: 10/09/18 07:51 Dose: 4 mg - Labs Labs: 10/11/18 07:00 10/11/18 07:00 PT 12.7 SECONDS (9.4-12.5) H 10/08/18 19:31 INR 1.14 10/08/18 19:31 APTT 31.0 Seconds (26.9-38.3) 10/08/18 19:31 Attending/Attestation - Attestation I have personally seen and examined this patient.: Yes I have fully participated in the care of the patient.: Yes I have reviewed all pertinent clinical information, including history, physical exam and plan: Yes Notes (Text): This is an addendum to the GI progress report dictated by fellow. Patient was seen and evaluated here earlier. Discussed with the patient's family, son who was at bedside along with the patient. Patient did spike a temperature. Presently on antibiotics. LFT shows improving trend. Patient now complains of discomfort in the epigastric and right upper quadrant area. Physical exam abdomen soft mild tenderness on deep palpation in the right upper quadrant area. Would consider endoscopic ultrasound if the LFTs remains elevated. ERCP will be based on the EUS finding. 10/11/18 17:22
--- NOTE | 2018-10-11 20:25 | CP.PCM.PN ---
Subjective - Date & Time of Evaluation Date of Evaluation: 10/11/18 Time of Evaluation: 09:30 - Subjective Subjective: Subjective: The patient was seen and examined at bedside on the general medical carlin. She continues to endorse RUQ abdominal pain and fevers. Pending GI and surgical intervention. Objective: VS: Tm 101.5, Tc 98.7, P 62, BP 137/77, RR 18 and O2 saturation 96% RA General: NAD HEENT: PERRL, EOMI, no scleral icterus, no conjunctival pallor Neck: No JVD Lungs: CTA. Cardiovascular: RRR, normal S1, S2. Abdomen: Normoactive bowel sounds, soft, (+) tender to RUQ with voluntary guarding Ext: no c/c/e Neurologic: AAO x 3, no focal motor deficits Laboratory Data: Reviewed and WBC 7.6, Hb 11.3. T bili 1.9, AST 174, ALT 440, Alk phos 234 Assessment: The patient is a 53 yo woman with no significant past medical history who was ad mitted for management of symptomatic cholelithiasis. Plan: 1. Symptomatic cholelithiasis. Continue with current care. GI and surgical intervention pending. CODE STATUS: Full Code. Objective - Vital Signs/Intake and Output Vital Signs (last 24 hours): Temp Pulse Resp BP Pulse Ox 98.7 F 62 18 138/79 96 10/11/18 15:39 10/11/18 15:39 10/11/18 15:39 10/11/18 15:39 10/11/18 15:39 - Medications Medications: Current Medications Acetaminophen (Tylenol 325mg Tab) 650 mg PO Q6H PRN PRN Reason: Other Last Admin: 10/09/18 12:31 Dose: 650 mg Enoxaparin Sodium (Lovenox) 40 mg SC DAILY [facility]; Protocol Last Admin: 10/11/18 18:54 Dose: 40 mg Dextrose/Sodium Chloride (Dextrose 5%/0.45% Ns 1000 Ml) 1,000 mls @ 75 mls/hr IV .[id number] [facility] Last Admin: 10/10/18 01:03 Dose: 75 mls/hr Piperacillin Sod/Tazobactam Sod (Zosyn 3.375 In Ns 100ml) 100 mls @ 200 mls/hr IVPB Q8H [facility]; Protocol Stop: 10/16/18 13:46 Last Admin: 10/11/18 13:23 Dose: 200 mls/hr Ketorolac Tromethamine (Toradol) 15 mg IVP Q6H PRN PRN Reason: Pain, Mild (1-3) Last Admin: 10/10/18 16:42 Dose: 15 mg Ondansetron HCl (Zofran Inj) 4 mg IVP Q4H PRN PRN Reason: Nausea/Vomiting Last Admin: 10/09/18 07:51 Dose: 4 mg - Labs Labs: 10/11/18 07:00 10/11/18 07:00 PT 12.7 SECONDS (9.4-12.5) H 10/08/18 19:31 INR 1.14 10/08/18 19:31 APTT 31.0 Seconds (26.9-38.3) 10/08/18 19:31
[2018-10-12] MEDS: Piperacillin/Tazobact 3.375 gm 100 ML IVPB SCH ×3 (06:28→21:57)
[2018-10-12 07:42] LABS: ALBUMIN 3.2 g/dL (3.0-4.8); ALT/SGPT 290 U/L (7-56); AST/SGOT 78 U/L (14-36); BLOOD UREA NITROGEN 4 mg/dL (7-21); CALCIUM 8.7 mg/dL (8.4-10.5); GFR NON-AFRICAN AMERICAN > 60
--- NOTE | 2018-10-12 08:28 | NM ---
Date of service: A 10/09/2018 PROCEDURE: Nuclear Medicine Hepatobiliary Scan HISTORY: elevated LFT and bilirubin COMPARISON: 10/09/2018 MRCP. 10/09/2018 abdominal ultrasound. TECHNIQUE: 5.0 mCi of technetium 99m Mebrofenin was administered intravenously. Planar images of the abdomen were obtained at 5 min intervals to 60 mins. Delayed images were also obtained. FINDINGS: LIVER: Timely and homogenous uptake. COMMON BILE DUCT: Not identified at 3 hr GALLBLADDER: Not identified at 3 hr. SMALL BOWEL: Not identified at 3 hr IMPRESSION: Abnormal hepatobiliary scan. Failure to severe radionuclide into the common bile duct, gallbladder and small bowel. Likely considerations include severe hepatocellular disease with failure to excrete radionuclide. Alternatively, high-grade bile duct obstruction should be considered. Concordant findings (preliminary report) provided by [facility].
[2018-10-12 08:50] LABS: HEPATITIS B SURFACE AG Negative (NEGATIVE)
[2018-10-12 08:56] LABS: HEPATITIS A IGM NEGATIVE (NEGATIVE); HEPATITIS B CORE AB NEGATIVE (NEGATIVE)
[2018-10-12 09:07] LABS: HEPATITIS C ANTIBODY NEGATIVE (NEGATIVE)
--- NOTE | 2018-10-12 10:45 | PN ---
SUBJECTIVE: The patient was seen and examined at bedside on the general medical carlin. No acute events overnight. She remains afebrile and hemodynamically stable. She is pending endoscopic ultrasound later today with possible subsequent ERCP. Overall she feels better since admission but continues to endorse a mild right upper quadrant discomfort but denies fevers, chills, rigors, nausea, vomiting, or diarrhea. OBJECTIVE: VITAL SIGNS: Temperature 99.2, pulse 72, blood pressure 118/69, respiratory rate 18, oxygen saturation 97% on room air. GENERAL: No apparent distress. HEENT: PERRL. EOMI. No scleral icterus. No conjunctival pallor. NECK: No JVD, no bruits. LUNGS: Clear to auscultation. CARDIOVASCULAR: Regular rate and rhythm. Normal S1, S2. No murmurs. ABDOMEN: Normoactive bowel sounds, soft, tender to palpation to RUQ with voluntary guarding, nondistended. No rigidity. No tympany. EXTREMITIES: No edema. NEUROLOGIC: Awake, alert, and oriented x 3. No focal motor deficits. LABORATORY DATA: Morning labs are pending. Blood cultures negative. ASSESSMENT: The patient is a 53-year-old woman with no significant past medical history who was admitted for management of symptomatic cholelithiasis. PLAN: 1. Cholelithiasis. Input from Dr. Breen and Dr. Jackson noted. The patient scheduled for endoscopic ultrasound later today with possible ERCP dependent on the findings. Continue with care as per GI and surgical teams. 2. Prophylaxis. GI prophylaxis not indicated as the patient is eating. DVT prophylaxis not indicated as the patient is ambulatory. CODE STATUS: Full code. Oskar Cullen MD MTDPrincess
[2018-10-12] MEDS ORDERED: Iohexol 240 (50 ml) ONE (15:20)
[2018-10-12] MEDS ORDERED: Indomethacin 50 MG Suppository PR ONE ×2 (15:20→19:05)
[2018-10-12] MEDS ORDERED: Sodium Chloride 0.9% 1,000 ML IV SCH (17:30)
[2018-10-12] MEDS ORDERED: Propofol 10 mg/ml Inj (20 ML) ONE (17:59)
[2018-10-12] MEDS ORDERED: Glucagon Recombinant 1 mg Inj ONE (19:27)
--- NOTE | 2018-10-12 20:09 | CP.PCM.PN ---
Subjective - Date & Time of Evaluation Date of Evaluation: 10/12/18 Time of Evaluation: 06:30 - Subjective Subjective: Patient seen and examined. Reports RUQ pain, although less severe. Afebrile over night. Denies nausea/vomiting. Objective - Vital Signs/Intake and Output Vital Signs (last 24 hours): Temp Pulse Resp BP Pulse Ox 99.2 F 68 16 160/72 H 99 10/12/18 19:48 10/12/18 19:48 10/12/18 19:48 10/12/18 19:48 10/12/18 19:48 - Medications Medications: Current Medications Acetaminophen (Tylenol 325mg Tab) 650 mg PO Q6H PRN PRN Reason: Other Last Admin: 10/09/18 12:31 Dose: 650 mg Ketorolac Tromethamine (Toradol) 15 mg IVP Q6H PRN PRN Reason: Pain, Mild (1-3) Last Admin: 10/10/18 16:42 Dose: 15 mg Ondansetron HCl (Zofran Inj) 4 mg IVP Q4H PRN PRN Reason: Nausea/Vomiting Last Admin: 10/09/18 07:51 Dose: 4 mg - Labs Labs: 10/11/18 07:00 10/12/18 06:45 PT 12.7 SECONDS (9.4-12.5) H 10/08/18 19:31 INR 1.14 10/08/18 19:31 APTT 31.0 Seconds (26.9-38.3) 10/08/18 19:31 - Constitutional Appears: No Acute Distress - Head Exam Head Exam: NORMOCEPHALIC - Eye Exam Eye Exam: EOMI, Normal appearance - Respiratory Exam Respiratory Exam: NORMAL BREATHING PATTERN - Cardiovascular Exam Cardiovascular Exam: +S1, +S2 - GI/Abdominal Exam GI & Abdominal Exam: Soft, Tenderness. absent: Distended, Guarding, Rigid - Neurological Exam Neurological Exam: Alert, Awake, Oriented x3 - Psychiatric Exam Psychiatric exam: Normal Mood - Skin Skin Exam: Dry, Intact, Warm Assessment and Plan - Assessment and Plan (Free Text) Assessment: 53yo F with possible choledocholithiasis - LFTs and T.Bili trending down; likely passed stone Plan: - NPO -IVF -F/u EUS/ERCP results - Antiemetics as needed - Antiembolic stockings. - Likely plan for cholecystectomy during this admission. -Further recs pending EUS/ERCP results Further recs as per Dr. Jackson covering for Dr. Dominguez
--- NOTE | 2018-10-12 22:17 | PN ---
DATE: 10/12/2018 SUBJECTIVE: Patient is in bed in no acute distress, was seen earlier today. No fevers. No chills. She says her fevers have subsided. PHYSICAL EXAMINATION VITAL SIGNS: Temperature is 99, blood pressure is 130/70, respiratory rate of 16, heart rate of 81. HEENT: Unremarkable. NECK: Supple. LUNGS: Have decreased breath sounds. HEART: Normal S1, S2. ABDOMEN: Soft. LABORATORY DATA: Reveals a white count of 7.6, hemoglobin of 11. Chemistries reveals a BUN of 4, creatinine of 0.5. Urinalysis is noted. Serology is reviewed. Microbiology reveals the blood cultures are negative. Review of orders reveals the patient's Zosyn has been discontinued. Patient has an endoscopy scheduled for today. EUS and ERCP results; Dr. Oskar Cullen's note is reviewed. The impression of the EUS is choledocholithiasis was found, complete removal was accomplished by balloon extraction. The biliary tree was swept and biliary sphincterotomy was performed. ASSESSMENT AND PLAN: A 53-year-old female with history of high cholesterol, cholelithiasis presenting with liver function test elevation, abdominal pain, sepsis with biliary source, cholelithiasis and status post endoscopic retrograde cholangiopancreatography, removal of stone today, on Zosyn. Current recommendation is 24 hours of antibiotics, maybe we will switch to p.o. upon removal of the source. Leander Schultz MD
[2018-10-13] MEDS: Piperacillin/Tazobact 3.375 gm 100 ML IVPB SCH ×3 (05:12→22:03)
[2018-10-13 07:12] LABS: BASO # 0.04 K/mm3 (0.0-2.0); BASO % 0.6 % (0.0-3.0); EOS # 0.3 (0.0-0.7); EOS % 4.2 % (1.5-5.0); HEMOGLOBIN 10.3 g/dL (12.0-16.0); LYMPH # 2.1 (1.2-3.4); LYMPH % 31.6 % (22.0-35.0); MEAN CELL VOLUME 85.6 fl (80.0-105.0); MEAN CORPUSCULAR HEMOGLOBIN 28.1 pg (25.0-35.0); MEAN CORPUSCULAR HGB CONC 32.8 g/dl (31.0-37.0); MEAN PLATELET VOLUME 9.6 fl (7.0-11.0); MONO # 0.7 (0.1-0.6); MONO % 9.8 % (1.0-6.0); RBC 3.67 10^6/uL (3.5-6.1); RED CELL DISTRIBUTION WIDTH 12.1 % (11.5-14.5); WHITE BLOOD COUNT 6.6 10^3/uL (4.5-11.0)
[2018-10-13 07:34] LABS: ALBUMIN 3.1 g/dL (3.0-4.8); ALT/SGPT 210 U/L (7-56); AST/SGOT 65 U/L (14-36); BLOOD UREA NITROGEN 6 mg/dL (7-21); CALCIUM 8.9 mg/dL (8.4-10.5); GFR NON-AFRICAN AMERICAN > 60
--- NOTE | 2018-10-13 08:03 | CP.PCM.PN ---
Subjective - Date & Time of Evaluation Date of Evaluation: 10/13/18 Time of Evaluation: 06:45 - Subjective Subjective: General Surgery progress note for Dr. Dominguez Patient seen and examined this am at bedside. Pt continues to have RUQ soreness but otherwise denies LEI, f/c, n/v, stool changes and extremity pain/weakness. Objective - Vital Signs/Intake and Output Vital Signs (last 24 hours): Temp Pulse Resp BP Pulse Ox 98 F 71 16 119/75 95 10/13/18 06:00 10/13/18 06:00 10/13/18 06:00 10/13/18 06:00 10/13/18 06:00 Intake and Output: 10/13/18 10/13/18 06:59 18:59 Intake Total 420 Balance 420 - Medications Medications: Current Medications Acetaminophen (Tylenol 325mg Tab) 650 mg PO Q6H PRN PRN Reason: Other Last Admin: 10/09/18 12:31 Dose: 650 mg Piperacillin Sod/Tazobactam Sod (Zosyn 3.375 In Ns 100ml) 100 mls @ 25 mls/hr IVPB Q8 ARCENIO; Protocol Stop: 10/18/18 22:01 Last Admin: 10/13/18 05:12 Dose: 25 mls/hr Ketorolac Tromethamine (Toradol) 15 mg IVP Q6H PRN PRN Reason: Pain, Mild (1-3) Last Admin: 10/10/18 16:42 Dose: 15 mg Ondansetron HCl (Zofran Inj) 4 mg IVP Q4H PRN PRN Reason: Nausea/Vomiting Last Admin: 10/09/18 07:51 Dose: 4 mg - Labs Labs: 10/13/18 06:45 10/13/18 06:45 PT 12.7 SECONDS (9.4-12.5) H 10/08/18 19:31 INR 1.14 10/08/18 19:31 APTT 31.0 Seconds (26.9-38.3) 10/08/18 19:31 - Constitutional Appears: Well, Non-toxic, No Acute Distress - Head Exam Head Exam: ATRAUMATIC - Eye Exam Eye Exam: EOMI - Respiratory Exam Respiratory Exam: NORMAL BREATHING PATTERN - Cardiovascular Exam Cardiovascular Exam: REGULAR RHYTHM - GI/Abdominal Exam GI & Abdominal Exam: Soft, Tenderness (RUQ). absent: Guarding, Rebound - Extremities Exam Extremities Exam: absent: Calf Tenderness, Pedal Edema - Neurological Exam Neurological Exam: Alert, Awake, Oriented x3 - Psychiatric Exam Psychiatric exam: Normal Affect, Normal Mood - Skin Skin Exam: Dry, Intact, Normal Color, Warm Assessment and Plan - Assessment and Plan (Free Text) Assessment: 53yo F with confirmed choledocholithiasis s/p EUS and ERCP POD 1 Plan: - NPO - IVF - Antiemetics as needed - AE hose - pain management - abx per ID - Likely plan for cholecystectomy during this admission Further recs as per Dr. Alberto Schwartz, PGY 1
[2018-10-13] MEDS ORDERED: Lactated Ringer's 1,000 ML IV SCH ×3 (08:15→14:15)
--- NOTE | 2018-10-13 08:19 | RAD ---
Date of service: 10/12/2018 PROCEDURE: ERCP HISTORY: R/O STONES COMPARISON: TECHNIQUE: 164.7 sec of fluoro time. Cumulative dose 55.21 mGy. Eighteen images submitted FINDINGS: The study shows passage of a balloon catheter through the common duct. No filling defects seen on the later images. IMPRESSION: As above
--- NOTE | 2018-10-13 09:02 | CP.PCM.PN ---
<Abad Tatum - Last Filed: 10/13/18 11:01> Subjective - Date & Time of Evaluation Date of Evaluation: 10/13/18 Time of Evaluation: 08:59 - Subjective Subjective: Patient feels significantly improved today compared to yesterday. Denies abdominal pain, fever, SOB. Objective - Vital Signs/Intake and Output Vital Signs (last 24 hours): Temp Pulse Resp BP Pulse Ox 98 F 71 16 119/75 95 10/13/18 06:00 10/13/18 06:00 10/13/18 06:00 10/13/18 06:00 10/13/18 06:00 Intake and Output: 10/13/18 10/13/18 06:59 18:59 Intake Total 420 Balance 420 - Medications Medications: Current Medications Acetaminophen (Tylenol 325mg Tab) 650 mg PO Q6H PRN PRN Reason: Other Last Admin: 10/09/18 12:31 Dose: 650 mg Piperacillin Sod/Tazobactam Sod (Zosyn 3.375 In Ns 100ml) 100 mls @ 25 mls/hr IVPB Q8 ARCENIO; Protocol Stop: 10/18/18 22:01 Last Admin: 10/13/18 05:12 Dose: 25 mls/hr Lactated Ringer's (Lactated Ringer's) 1,000 mls @ 100 mls/hr IV .Q10H ARCENIO Last Admin: 10/13/18 08:43 Dose: 100 mls/hr Ketorolac Tromethamine (Toradol) 15 mg IVP Q6H PRN PRN Reason: Pain, Mild (1-3) Last Admin: 10/10/18 16:42 Dose: 15 mg Ondansetron HCl (Zofran Inj) 4 mg IVP Q4H PRN PRN Reason: Nausea/Vomiting Last Admin: 10/09/18 07:51 Dose: 4 mg - Labs Labs: 10/13/18 06:45 10/13/18 06:45 PT 12.7 SECONDS (9.4-12.5) H 10/08/18 19:31 INR 1.14 10/08/18 19:31 APTT 31.0 Seconds (26.9-38.3) 10/08/18 19:31 - Constitutional Appears: Non-toxic, No Acute Distress - Eye Exam Eye Exam: EOMI, Normal appearance - ENT Exam ENT Exam: Mucous Membranes Moist, Normal Exam - Respiratory Exam Respiratory Exam: Clear to Ausculation Bilateral, NORMAL BREATHING PATTERN - Cardiovascular Exam Cardiovascular Exam: REGULAR RHYTHM, +S1, +S2 - GI/Abdominal Exam GI & Abdominal Exam: Soft, Normal Bowel Sounds. absent: Tenderness - Neurological Exam Neurological Exam: Alert, Awake, Oriented x3 - Skin Skin Exam: Normal Color, Warm Assessment and Plan - Assessment and Plan (Free Text) Assessment: 53 year old female with no significant medical history admitted for choledocolithiasis. ABD US reviewed from prior ED visit. Patient with no significant signs of sepsis at this time. Plan: - EGD/EUS/ERCP 10/12/18 showed small GB stone ~3mm, sludge/gravel at distal CBD, mildly dilated CBD 7mm. Sphincterotomy performed with balloon sweep. - Liver test continue to trend down - surgery on board likely surgery today or tomorrow per patient - abx as per primary team - will continue to monitor - Diet per surgery D/W Dr. Breen <Radha Breen V - Last Filed: 10/13/18 23:31> Objective - Vital Signs/Intake and Output Vital Signs (last 24 hours): Temp Pulse Resp BP Pulse Ox 97.7 F 63 19 103/56 L 94 L 10/13/18 22:43 10/13/18 22:43 10/13/18 22:43 10/13/18 22:43 10/13/18 22:43 - Medications Medications: Current Medications Acetaminophen (Tylenol 325mg Tab) 650 mg PO Q6H PRN PRN Reason: Other Last Admin: 10/09/18 12:31 Dose: 650 mg Piperacillin Sod/Tazobactam Sod (Zosyn 3.375 In Ns 100ml) 100 mls @ 25 mls/hr IVPB Q8 ARCENIO; Protocol Stop: 10/18/18 22:01 Last Admin: 10/13/18 22:03 Dose: 25 mls/hr Lactated Ringer's (Lactated Ringer's) 1,000 mls @ 100 mls/hr IV .Q10H ARCENIO Last Admin: 10/13/18 08:43 Dose: 100 mls/hr Ketorolac Tromethamine (Toradol) 15 mg IVP Q6H PRN PRN Reason: Pain, Mild (1-3) Last Admin: 10/13/18 22:56 Dose: 15 mg Ondansetron HCl (Zofran Inj) 4 mg IVP Q4H PRN PRN Reason: Nausea/Vomiting Last Admin: 10/09/18 07:51 Dose: 4 mg Ondansetron HCl (Zofran Inj) 4 mg IVP ONCE PRN PRN Reason: Nausea/Vomiting Ondansetron HCl (Zofran Inj) 4 mg IVP ONCE PRN PRN Reason: Nausea/Vomiting - Labs Labs: 10/13/18 06:45 10/13/18 06:45 PT 12.7 SECONDS (9.4-12.5) H 10/08/18 19:31 INR 1.14 10/08/18 19:31 APTT 31.0 Seconds (26.9-38.3) 10/08/18 19:31 Attending/Attestation - Attestation I have personally seen and examined this patient.: Yes I have fully participated in the care of the patient.: Yes I have reviewed all pertinent clinical information, including history, physical exam and plan: Yes Notes (Text): This patient was seen and evaluated here earlier along with the GI fellow. This is an addendum to the GI progress report dictated by the GI fellow. Patient was scheduled for laparoscopic cholecystectomy at that time. Status post ERCP sphincterotomy and balloon sweep and removal of the stones/sludge He was also showed a gallstones and CBD stone sludge which was removed subsequently following ERCP. Follow-up LFT which shows downward trend 10/13/18 23:29
--- NOTE | 2018-10-13 09:32 | PN ---
SUBJECTIVE: The patient was seen and examined at bedside on the general medical carlin. No acute events overnight. She remains afebrile, hemodynamically stable and is doing well s/p endoscopic ultrasound and ERCP. This morning she reports near resolution of her abdominal discomfort, feels significantly improved and offers no complaints. OBJECTIVE: VITAL SIGNS: Temperature 98, pulse 71, blood pressure 119/75, respiratory rate 16, oxygen saturation 95% on room air. GENERAL: No apparent distress. HEENT: PERRL, EOMI. No scleral icterus. No conjunctival pallor. NECK: No JVD, no bruits. LUNGS: Clear to auscultation. CARDIOVASCULAR: Regular rate and rhythm. Normal S1, S2. No murmurs. ABDOMEN: Normoactive bowel sounds, soft, nontender and nondistended. No rigidity. No tympany. EXTREMITIES: No edema. NEUROLOGIC: Awake, alert and oriented x 3. No focal motor deficits. LABORATORY DATA: WBC 6.6 with 54% neutrophils, hemoglobin 10, hematocrit 31, platelets 289. Sodium 139, potassium 3.4, chloride 105, bicarb 29, BUN 6, creatinine 0.6, glucose 100. T bili 1.2, AST 65, ALT 210, Alk phos 219. Blood cultures negative. ASSESSMENT: The patient is a 53-year-old woman with no significant past medical history who presented for evaluation of a several day history of RUQ abdominal pain who is now s/p ERCP with balloon extraction of choledocholithiasis and biliary sphincterotomy. PLAN: 1. Choledocholithiasis s/p ERCP. Continue with postprocedure care as per Dr. Breen and advance diet as per GI. Surgical evaluation pending to determine timing of cholecystectomy. The patient is a low risk patient for an intermediate risk procedure and may proceed to the OR without any further cardiopulmonary evaluation. 2. Prophylaxis. GI prophylaxis not indicated as the patient is eating. DVT prophylaxis not indicated as the patient is ambulatory. CODE STATUS: Full code. Oskar Cullen MD MTDPrincess
[2018-10-13] MEDS ORDERED: HYDROmorphone 0.5 mg/0.5 ml ISec IVP PRN (11:02)
[2018-10-13] MEDS ORDERED: Potassium Chloride 10 mEq/100 ml PREMIX IVPB ONE (11:05)
[2018-10-13] MEDS ORDERED: Iohexol 240 (50 ml) ONE (12:06)
[2018-10-13] MEDS ORDERED: Bupivacaine 0.5% 50 ML IJ ONE (12:06)
[2018-10-13] MEDS ORDERED: Propofol 10 mg/ml Inj (20 ML) ONE (12:13)
[2018-10-13] MEDS ORDERED: Midazolam 2 MG/2 ML VIAL ONE (12:14)
[2018-10-13] MEDS ORDERED: Rocuronium 10 mg/ml (5 ml) ONE (12:16)
[2018-10-13] MEDS ORDERED: Glycopyrrolate 0.2 mg/ml (2ml vial) ONE (12:31)
[2018-10-13] MEDS ORDERED: Sevoflurane - Inhalation Anesthetic Liq (250 ml) ONE (12:31)
[2018-10-13] MEDS ORDERED: Neostigmine Methylsulfate 3mg/3ml Syringe IV ONE (12:32)
[2018-10-13] MEDS: HYDROmorphone 0.5 mg/0.5 ml ISec IVP PRN ×2 (14:20→14:48)
[2018-10-13] MEDS ORDERED: HYDROmorphone 0.5 mg/0.5 ml ISec ONE ×2 (14:22→14:51)
--- NOTE | 2018-10-13 14:27 | PCM.SURG1 ---
Surgeon's Initial Post Op Note - Surgeon's Notes Surgeon: Dr Dominguez Petrol Tanker Driver: Dr Lebron PGY4, Dr Schwartz PGY1 Type of Anesthesia: General Endo Pre-Operative Diagnosis: Chronic Cholecystitis Operative Findings: Chronically inflammed cholecystitis Post-Operative Diagnosis: as above Operation Performed: Laparoscopic cholecystectomy Specimen/Specimens Removed: gallbladder Estimated Blood Loss: EBL {In ML}: 15 Blood Products Given: N/A Drains Used: No Drains Post-Op Condition: Good Date of Surgery/Procedure: 10/13/18 Time of Surgery/Procedure: 14:33
--- NOTE | 2018-10-13 23:26 | PN ---
DATE: 10/13/2018 SUBJECTIVE: The patient is seen in bed, in no acute distress. OBJECTIVE: VITAL SIGNS: Temperature is 98, blood pressure is 130/70, and respiratory rate of 18. HEENT: Unremarkable. NECK: Supple. LUNGS: Have decreased breath sounds. HEART: S1 and S2. ABDOMEN: Soft. LABORATORY DATA: Reveals a white count of 6.6 and hemoglobin of 10. Urinalysis is noted. Serology is reviewed. Microbiology reveals the blood cultures are negative. Urine cultures are negative. ASSESSMENT AND PLAN: This is a 53-year-old female who was seen earlier today with high cholesterol, cholelithiasis liver function test elevation, abdominal pain with sepsis with biliary source and status post endoscopic retrograde cholangiopancreatography, removal of the stone, on Zosyn. The patient for laparoscopic cholecystectomy. Recommendation is to discontinue the antibiotics post 24 hours after surgery inflammation extends beyond the gallbladder wall by pathology. We will continue Zosyn for now. Follow the patient also clinically. Leander Schultz MD
--- NOTE | 2018-10-14 02:32 | OP ---
PROCEDURE DATE: 10/13/2018 INDICATION: Acute cholecystis. The patient is a 53-year-old female that presented approximately two weeks ago with symptomatic cholelithiasis, was scheduled to an outpatient cholecystectomy, but then, the patient returned to the emergency room approximately four days ago with acute worsening of pain, elevated LFTs. Found to have choledocholithiasis. The patient underwent an ERCP with stone extraction and decompression. Had resolution of symptoms and was taking to the operating room today, 10/13/2018, for laparoscopic cholecystectomy. PREOPERATIVE DIAGNOSIS: Chronic cholecystitis. POSTOPERATIVE DIAGNOSIS: Chronic cholecystitis. OPERATION: Laparoscopic cholecystectomy. SURGEON: Yunier Dominguez MD SENIOR SYSTEMS ADMINISTRATOR: Alexey Lebron DO, PGY-4 DESCRIPTION OF PROCEDURE: The patient was taken to the operating room and placed on the table in supine fashion after the induction of general anesthesia, the patient was prepped with Betadine and draped in the usual sterile fashion. Time-out was performed with a surgical safety checklist confirming the appropriate patient, the appropriate procedure, and that all necessary precautions are obtained. The patient was given 2 g of Ancef preoperatively. A 11 mm incision was made above the umbilicus. A Veress needle was then inserted, and the insufflation was connected. Appropriate opening pressure of 4 mmHg with an adequate flow rate. The abdomen was insufflated up to a base pressure of 15 mmHg. Then, a 12 mm trocar was inserted through the same umbilical incision using the Visiport. After this was done, the camera was inserted through the trocar. The underlying bowel was inspected to make sure that there was no injury. Upon entering through the abdomen, there was none. The abdomen was then thoroughly inspected with significant number of adhesions in the pylorus as well as in the right upper quadrant and around the gallbladder. The patient was then placed in the reverse Trendelenburg and rotated to the left. I was noted at this time with a significant amount of chronic inflammation around the gallbladder, and after an extensive dissection, we would need to place. A 5 mm trocar was placed in the subumbilical port as well as two 5 mm trocars along the right side of the abdomen to the subcostal margin. Then, using the harmonic, we slowly dissected the inflamed fragments of omentum down from the gallbladder. It was noted that the transverse colon was also adhered to the gallbladder. Without using electrocautery, this was taken down with combination of blunt and sharp dissection. Care was taken to make sure that no colotomy was occurred. After the colon was taken down and resected inferiorly, we got a little bit more exposure to the gallbladder. I was able to grasp this with a retractor and take it cephalad. However, now, it was noted that the duodenum was stuck to the infundibulum of the gallbladder. The duodenum was taken down using the same technique, combination of both blunt dissection with the [place] dissector as well as sharp dissection with the endoshears. No electrocautery was used during this time. The duodenum was freely mobilized and taken away from the infundibulum of the gallbladder. At this point, we were able to introduce our second grasper and grab the infundibulum of the gallbladder giving cephalad traction in combination with the caudad traction which opened the cystic triangle. It was noted that the infundibulum was going down into a large tubular structure. This was a presumptive cystic duct, however, was larger than we would have anticipated. For then, some blunt dissection continued around this area in which she was noted that due to chronic adhesions, the cystic duct and the cystic artery were actually fused together. This was using blunt dissection with a [place] dissector hydrostatic dissection with the irrigation device. We carried this on until our critical view of safety was obtained. We clearly had one tubular structure which was the presumptive cystic duct entering into the infundibulum of the gallbladder. Posterior to that, we clearly felt the pulsatile artery as well entering into the gallbladder in between the two posterior surface of the liver, therefore, comprising all three components of the critical view, we established that it was not safe to proceed with clipping and transection. However, given the size of the cystic duct, the 8-mm clips were not fit on the duct, so upsize of 5-mm subxiphoid port to a 12 mm port, and then the jumbo clips were applied; two on the safe side, one on the specimen side to both the cystic duct and the cystic artery, and then, these were transected using endoshears. After our appropriate structures were transected, we turned our attention to removing the bladder from the liver bed. This was done with spatula as electrocautery. Dissection was carried out to the fundus of the gallbladder, ensuring that the liver bed was dry, and the hemostasis was achieved. There was minor spillage of bile during the procedure. After the gallbladder was placed into the EndoCatch bag, the abdomen was irrigated and suctioned out with approximately 1 liter of saline. Gallbladder was removed from the umbilical port, and then, the abdomen was reinsufflated. The umbilical port was closed with 0 Vicryl and a [id number] stitch on a direct visualization of the camera ensuring that no bowel was caught within the port. After the umbilical port was closed, the abdomen was desufflated. Trocars were removed under direct visualization. Remaining ports were closed with 4-0 Monocryl. The patient was then inflamed and dried off, and the incisions were closed with Dermabond. She was successfully extubated and transferred to PACU in stable condition. Estimated blood loss was approximately 15 mL. There were no complications. The patient tolerated the procedure well. Alexey Lebron DO Yunier Dominguez MD
[2018-10-14] MEDS: Piperacillin/Tazobact 3.375 gm 100 ML IVPB SCH (05:23)
[2018-10-14 07:49] LABS: BASO # 0.03 K/mm3 (0.0-2.0); BASO % 0.3 % (0.0-3.0); EOS # 0.1 (0.0-0.7); EOS % 0.9 % (1.5-5.0); HEMOGLOBIN 10.2 g/dL (12.0-16.0); LYMPH # 2.4 (1.2-3.4); LYMPH % 27.5 % (22.0-35.0); MEAN CELL VOLUME 86.2 fl (80.0-105.0); MEAN CORPUSCULAR HEMOGLOBIN 28.1 pg (25.0-35.0); MEAN CORPUSCULAR HGB CONC 32.6 g/dl (31.0-37.0); MEAN PLATELET VOLUME 9.8 fl (7.0-11.0); MONO # 0.7 (0.1-0.6); MONO % 8.2 % (1.0-6.0); RBC 3.63 10^6/uL (3.5-6.1); RED CELL DISTRIBUTION WIDTH 12.3 % (11.5-14.5); WHITE BLOOD COUNT 8.7 10^3/uL (4.5-11.0)
[2018-10-14 07:59] VITALS: BP 118/84; PULSE 62; RESP 18; TEMP 98.6; O2SAT 97
[2018-10-14 08:23] LABS: ALB/GLOB RATIO 0.9 (1.1-1.8); ALT/SGPT 179 U/L (7-56); AST/SGOT 91 U/L (14-36); BLOOD UREA NITROGEN 9 mg/dL (7-21); GFR NON-AFRICAN AMERICAN > 60
--- NOTE | 2018-10-14 10:25 | PN ---
SUBJECTIVE: The patient was seen and examined at bedside on the general medical carlin. No acute events overnight. She remains afebrile, hemodynamically stable and is doing well s/p laparoscopic cholecystectomy. This morning she feels okay, offers no complaints and is requesting her diet to be advanced. OBJECTIVE: VITAL SIGNS: Temperature 98.6, pulse 62, blood pressure 118/64, respiratory rate 18, oxygen saturation 97% on room air. GENERAL: No apparent distress. HEENT: PERRL, EOMI. No scleral icterus. No conjunctival pallor. NECK: No JVD, no bruits. LUNGS: Clear to auscultation. CARDIOVASCULAR: Regular rate and rhythm. Normal S1, S2. No murmurs. ABDOMEN: Normoactive bowel sounds, soft, nontender, nondistended. Surgical puncture wounds appear clean, dry and intact. EXTREMITIES: No edema. NEUROLOGIC: Awake, alert and oriented x 3. No focal motor deficits. LABORATORY DATA: WBC 8.7 with 63% neutrophils, hemoglobin 10, hematocrit 31, platelets 335. Chemistry reviewed and unremarkable. T bili 1, AST 91, ALT 179, Alk phos 207. Blood cultures negative. ASSESSMENT: The patient is a 53-year-old woman with no significant past medical history who presented for evaluation of a several day history of RUQ abdominal pain and was admitted for management of choledocholithiasis who is now s/p ERCP s/p laparoscopic cholecystectomy POD #1. PLAN: 1. Choledocholithiasis s/p laparoscopic cholecystectomy POD #1. Input from Dr. Dominguez and surgical team noted. Continue with postoperative care as per surgical team. Input from Dr. Breen also noted. Advance diet as per GI. 2. Prophylaxis. GI prophylaxis not indicated as the patient is eating. DVT prophylaxis not indicated as the patient is ambulatory. CODE STATUS: Full code. Oskar Cullen MD MTDD
--- NOTE | 2018-10-14 11:43 | CP.PCM.PN ---
Subjective - Date & Time of Evaluation Date of Evaluation: 10/14/18 Time of Evaluation: 11:40 - Subjective Subjective: PGY1 General Surgery Progress Note for Dr. Dominguez Patient seen and evaluated at bedside this morning. No acute events overnight. Patient is POD-1 S/P laparoscopic cholecystectomy with Dr. Dominguez. No drains. Patient denies nausea, vomiting, chest pain, and/or shortness of breath. Objective - Vital Signs/Intake and Output Vital Signs (last 24 hours): Temp Pulse Resp BP Pulse Ox 98.6 F 62 18 118/84 97 10/14/18 06:00 10/14/18 06:00 10/14/18 06:00 10/14/18 06:00 10/14/18 06:00 Intake and Output: 10/14/18 10/14/18 06:59 18:59 Intake Total 180 Balance 180 - Medications Medications: Current Medications Acetaminophen (Tylenol 325mg Tab) 650 mg PO Q6H PRN PRN Reason: Other Last Admin: 10/09/18 12:31 Dose: 650 mg Piperacillin Sod/Tazobactam Sod (Zosyn 3.375 In Ns 100ml) 100 mls @ 25 mls/hr IVPB Q8 ARCENIO; Protocol Stop: 10/18/18 22:01 Last Admin: 10/14/18 05:23 Dose: 25 mls/hr Lactated Ringer's (Lactated Ringer's) 1,000 mls @ 100 mls/hr IV .Q10H ARCENIO Last Admin: 10/13/18 08:43 Dose: 100 mls/hr Ketorolac Tromethamine (Toradol) 15 mg IVP Q6H PRN PRN Reason: Pain, Mild (1-3) Last Admin: 10/13/18 22:56 Dose: 15 mg Ondansetron HCl (Zofran Inj) 4 mg IVP Q4H PRN PRN Reason: Nausea/Vomiting Last Admin: 10/09/18 07:51 Dose: 4 mg Ondansetron HCl (Zofran Inj) 4 mg IVP ONCE PRN PRN Reason: Nausea/Vomiting Ondansetron HCl (Zofran Inj) 4 mg IVP ONCE PRN PRN Reason: Nausea/Vomiting - Labs Labs: 10/14/18 06:45 10/14/18 06:45 PT 12.7 SECONDS (9.4-12.5) H 10/08/18 19:31 INR 1.14 10/08/18 19:31 APTT 31.0 Seconds (26.9-38.3) 10/08/18 19:31 - Eye Exam Eye Exam: EOMI, Normal appearance, PERRL - ENT Exam ENT Exam: Mucous Membranes Moist, Normal Exam - Neck Exam Neck Exam: Full ROM, Normal Inspection - Respiratory Exam Respiratory Exam: NORMAL BREATHING PATTERN. absent: Accessory Muscle Use, Respiratory Distress - GI/Abdominal Exam GI & Abdominal Exam: Soft, Tenderness (appropriate for clinical state ), Normal Bowel Sounds. absent: Distended, Guarding, Rigid Additional comments: surgical sites clean, dry, and intact. - Back Exam Back Exam: NORMAL INSPECTION - Neurological Exam Neurological Exam: Alert, Awake, Oriented x3 - Psychiatric Exam Psychiatric exam: Normal Affect, Normal Mood - Skin Skin Exam: Dry, Intact, Normal Color, Warm Assessment and Plan - Assessment and Plan (Free Text) Assessment: Patient is a 53 yo F with chronic cholecystitis s/p laparoscopic cholecystectomy with Dr. Dominguez. Today she is POD-1 Plan: - Tolerating diet - Pain management - Cleared for discharge to home from surgical standpoint - Follow-up in clinic in 1 week D/W Dr. Alberto Lowe PGY1
--- NOTE | 2018-10-15 00:51 | DS ---
ADMISSION DIAGNOSIS : Choledocholithiasis. DISCHARGE DIAGNOSIS: Choledocholithiasis s/p ERCP with balloon extraction s/p laparoscopic cholecystectomy. SECONDARY DIAGNOSIS: None. CONSULTATIONS: Dr. Schultz (Infectious Disease), Dr. Breen (Gastroenterology) and Dr. Dominguez (General Surgery). IMAGING STUDIES: 1. Abdominal ultrasound demonstrated cholelithiasis with no sonographic evidence of acute cholecystitis. 2. MRCP demonstrated no evidence of cholelithiasis or cholecystitis. DIAGNOSTIC STUDIES: 1. HIDA scan demonstrated findings consistent with high-grade bile duct obstruction. PROCEDURES: 1. ERCP demonstrated choledocholithiasis with removal accomplished by balloon extraction and biliary sphincterotomy. 2. Laparoscopic cholecystectomy. HISTORY OF PRESENT ILLNESS: The patient is a 53-year-old woman with no significant past medical history who presented for evaluation of a several day history of progressively worsening right upper quadrant abdominal pain. The patient was initially evaluated in her PMD's office for the aforementioned symptoms and was advised that her symptoms are concerning for cholelithiasis. She was evaluated by Dr. Dominguez of General Surgery and plans were made for elective cholecystectomy in the near future. Unfortunately, her pain had increased and she developed nausea, vomiting and inability to tolerate p.o. intake. Given her deteriorating clinical condition, she opted for ED evaluation. In the ED she was afebrile and hemodynamically stable albeit in moderate distress secondary to right upper quadrant abdominal pain. Laboratory studies demonstrated markedly elevated LFTs and she was subsequently admitted to the general medical carlin for continued evaluation. HOSPITAL COURSE: Upon admission to the general medical carlin she was started on IV fluid hydration, antiemetics and analgesics. She was evaluated by Dr. Jackson (covering for Dr. Dominguez) and Dr. Breen of GI. Recommendations were made for MRCP to rule out a common bile duct stone. The patient also underwent a HIDA scan with findings described above. She was eventually taken to the endoscopy suite where she underwent ERCP with successful extraction of choledocholithiasis and biliary sphincterotomy. She tolerated the procedure well and no postprocedure complications were noted. On hospital day #4 she was taken to the OR where she successfully underwent laparoscopic cholecystectomy. The remainder of her hospital course was unremarkable and she was tolerating her diet without difficulty. Given her clinical stability, she was cleared for discharge to home. CONDITION: Fair, improved. DISPOSITION: Home. DISCHARGE MEDICATIONS: Motrin 800 mg p.o. q. 8 hours p.r.n. pain. DISCHARGE INSTRUCTIONS: The patient was advised to adhere to postprocedure instructions as per Dr. Dominguez. She was also advised if she has any recurrence of her symptoms or any development of fevers, chills, rigors, nausea, vomiting, diarrhea, abdominal pain or discharge from her surgical site to present to her PMD or to the nearest ED immediately. FOLLOWUP: The patient to follow up with her PMD within 1 week of discharge. The patient to follow up with Dr. Dominguez as scheduled. The patient to follow up with Dr. Breen as scheduled. Oskar Cullen MD MTDPrincess
== END 2018-10-14 14:44 | disposition home or self-care (01) | DRG 419 ==
LOC: ED 18:14 → ERH 20:19 → 5RNO 22:22 → 5RSO 10-13 11:36
PROVIDERS: ADMIT Student in an Organized Health Care Education/Training Program; ATTEND Student in an Organized Health Care Education/Training Program
PROC: 0DJ08ZZ Inspection of Upper Intestinal Tract, Via Natural or Artificial Opening Endoscopic (ICD-10-PCS; 2018-10-12 13:30)
PROC: BF43ZZZ Ultrasonography of Gallbladder and Bile Ducts (ICD-10-PCS; 2018-10-12 13:30)
PROC: 0FC98ZZ Extirpation of Matter from Common Bile Duct, Via Natural or Artificial Opening Endoscopic (ICD-10-PCS; 2018-10-12 13:30)
PROC: 0FT44ZZ Resection of Gallbladder, Percutaneous Endoscopic Approach (ICD-10-PCS; principal; 2018-10-13 11:45)
DX: K80.64 Calculus of gallbladder and bile duct with chronic cholecystitis without obstruction (principal); R63.0 Anorexia; E78.00 Pure hypercholesterolemia, unspecified; F17.210 Nicotine dependence, cigarettes, uncomplicated; R79.89 Other specified abnormal findings of blood chemistry